=== PATIENT | female | born 1950 | race Two or more races ===

== ENCOUNTER 2017-11-17 18:03 | Inpatient (IN) | payer BC, OTHER ==
[2017-11-17 18:49] VITALS: BMI 29.6
--- NOTE | 2017-11-17 18:57 | PDOC ---
History of Present Illness - General Chief Complaint: Chest Pain Stated Complaint: Chest Pain Time Seen by Provider: 11/17/17 18:37 History Source: Patient Exam Limitations: No Limitations - History of Present Illness Initial Comments: This is a 67 YOF with h/o HTN (takes amlodipine and lisinopril), GERD (takes pantoprazole consistently), obesity, sleeve gastrectomy 2 years ago, and C- section x2 who p/w non-radiating 5/10 midsternal pressure fluctuating since this morning and associated with lightheadedness, pre-syncope at 1:30 pm, and tingling in her left arm and both feet, all of which she has never experienced before. She denies any f/c/n/v/d/c, black/bloody stool, burning on urination, bloody urine, vaginal bleeding or discharge, headache, vision changes, numbness , focal weakness, or other symptoms. She states that her chest pressure persists now at 5/10 and she additionally still feels lightheaded. She believes she has been eating and drinking well lately. She always has a baseline high stress level but believes she deals with it well and has no change in this baseline level lately. Her brother accompanies her here in the ED and she notes he has h/o CAD but no other family members do. She denies recent hemoptysis, OCP use, estrogen use, SOB, family h/o blood clot, prolonged immobilization or surgery, palpitations, etc. Past History - Past Medical History Allergies/Adverse Reactions: Allergies Allergy/AdvReac Type Severity Reaction Status Date / Time Penicillins Allergy Intermediate Verified 11/17/17 18:15 amoxicillin [Amoxicillin] Allergy Mild Verified 11/17/17 18:15 Home Medications: Ambulatory Orders Amlodipine Besylate [Norvasc -] 5 mg PO DAILY 11/17/17 Lisinopril/Hydrochlorothiazide [Lisinopril-Hctz 10-12.5 mg Tab] 1 each PO DAILY 11/17/17 Metoprolol Succinate [Toprol Xl] 100 mg PO DAILY 11/17/17 Pantoprazole Sodium [Protonix -] 40 mg PO DAILY 11/17/17 Cardiac Disorders: Yes (HTN) COPD: No Hypercholesterolemia: Yes - Suicide/Smoking/Psychosocial Hx Smoking Status: No Smoking History: Never smoked Have you smoked in the past 12 months: No Number of Cigarettes Smoked Daily: 0 Information on smoking cessation initiated: No Hx Alcohol Use: No Drug/Substance Use Hx: No Substance Use Type: None Hx Substance Use Treatment: No Review of Systems - Review of Systems Able to Perform ROS?: Yes Constitutional: No: Chills, Diaphoresis, Fever, Unexplained wgt Loss HEENTM: No: Nose Congestion, Throat Pain Respiratory: No: Cough, Shortness of Breath Cardiac (ROS): Yes: Chest Pain, Lightheadedness. No: Edema, Palpitations ABD/GI: No: Constipated, Diarrhea, Nausea, Vomiting : No: Burning, Dysuria Musculoskeletal: No: Back Pain, Neck Pain Integumentary: No: Bruising, Rash Neurological: Yes: Tingling (left arm, bilateral feet). No: Headache, Numbness , Weakness, Dizziness Endocrine: No: Unexplained Weight Gain, Unexplained Weight Loss *Physical Exam - Vital Signs Last Vital Signs Temp Pulse Resp BP Pulse Ox 98.0 F 56 L 18 151/84 100 11/18/17 22:00 11/18/17 22:38 11/18/17 22:00 11/18/17 22:00 11/18/17 22:00 - Physical Exam General Appearance: Yes: Nourished, Appropriately Dressed, Obese, Other (awake, alert, well appearing, answering appropriately, accompanied by brother at bedside). No: Apparent Distress HEENT: positive: EOMI, GLENNA, Normal Voice, Hearing Grossly Normal. negative: Scleral Icterus (R), Scleral Icterus (L), Nasal Congestion Neck: positive: Trachea midline, Supple. negative: Tender, Rigid Respiratory/Chest: positive: Lungs Clear, Normal Breath Sounds. negative: Respiratory Distress, Crackles, Rhonchi, Stridor, Wheezing Cardiovascular: positive: Regular Rhythm, S1, S2, Bradycardia (mild). negative : Edema, JVD, Murmur Comments:: radial pulses intact, equal, 2+ bilaterally Gastrointestinal/Abdominal: positive: Normal Bowel Sounds, Flat, Soft. negative : Tender, Organomegaly, Pulsatile Mass, Guarding Musculoskeletal: positive: Normal Inspection. negative: Decreased Range of Motion, Vertebral Tenderness Extremity: positive: Normal Capillary Refill, Normal Inspection, Normal Range of Motion. negative: Tender, Cyanosis Integumentary: positive: Normal Color, Dry, Warm. 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 negative: EOM Palsy, Facial Droop , Numbness, Sensory Deficit, Confused, Disoriented Heart Score/ECG Review - History History: Slightly suspicious - Electrocardiogram EKG: Normal - Age Age: >/= 65 - Risk Factors Risk Factors Heart Score: Yes Hx Hypertension, Yes Positive family hx of cardiac disease, Yes Hx Obesity Based on the list above the patient has:: >/=3 risk factors or Hx atherosclerotic disease - Troponin Troponin: </= normal limit - Score Heart Score - Total: 4 #1 Sinus marylou, rate 53, normal axis and intervals, TWI in I and aVL (these were present on EKG from 2012), no MAYO. ED Treatment Course - LABORATORY CBC & Chemistry Diagram: 11/17/17 19:01 11/17/17 21:30 - ADDITIONAL ORDERS Additional order review: 11/17/17 19:01 RBC 5.62 H MCV 78.8 L MCHC 32.6 RDW 15.2 MPV 11.1 Neutrophils % 56.7 Lymphocytes % 32.6 Monocytes % 7.0 Eosinophils % 2.9 Basophils % 0.8 - RADIOLOGY Radiology Studies Ordered: Category Date Time Status ABDOMEN CTA W/WO CONTRAST [CT] Stat CT Scan 11/17/17 20:00 Completed CHEST CTA [CT] Stat CT Scan 11/17/17 19:59 Completed CHEST PA & LAT [RAD] Stat Radiology 11/17/17 18:57 Completed - Medications Given in the ED: ED Medications Discontinued Medications Generic Name Dose Route Start Last Admin Trade Name Freq PRN Reason Stop Dose Admin Aspirin 325 mg 11/18/17 00:50 11/18/17 02:55 Asa - PO 11/18/17 00:51 325 mg ONCE ONE Administration Lisinopril 10 mg 11/18/17 01:12 11/18/17 02:55 Prinivil PO 11/18/17 01:13 10 mg ONCE ONE Administration Sodium Chloride 1,000 ml 11/17/17 18:59 11/17/17 19:22 Normal Saline - IV 11/17/17 19:00 1,000 ml ONCE ONE Administration Sodium Chloride 1,000 ml 11/17/17 22:20 11/17/17 22:30 Normal Saline - IV 11/17/17 22:21 1,000 ml ONCE ONE Administration Medical Decision Making - Medical Decision Making Adult Pt p/w chest pain. Initial Vital Signs Temp Pulse Resp BP Pulse Ox 99.1 F 62 18 189/94 100 11/17/17 18:17 11/17/17 18:17 11/17/17 18:17 11/17/17 18:17 11/17/17 18:17 Exam: As noted in Physical Exam section. DDX IBNLT: ACS, pericarditis, tamponade, aortic dissection, AAA, PTX, PE, esophageal tear, esophagitis (e.g. pill, infectious), esophageal stricture, esophageal FB, gastritis, PUD, pancreatitis, cholecystitis, cholangitis, colitis , bowel perforation, PNA/bronchitis, pleurisy, pleuritis, MVP, pulmonary HTN, musculoskeletal, panic/anxiety, etc. W/U ordered: CBCD CMP Mg Phos Lipase Troponin CK CKMB Coags T&S Blood gas UA UCx EKG CXR. TX ordered: monitor, ASA 324, NTG, O2 via NC if needed, statin, maybe metoprolol. Patient is 67 YOF and PERC criteria cannot be used to r/o PE. However without hypoxia, tachycardia, SOB, pleuritic nature, leg swelling/pain, or other sxs/risk factors PE is lower on differential. Per Weber Syncope Rule patient is low risk. EKG: Reviewed; results as noted in ECG Review section. 11/17/17 19:46 Chemistries, T&S, and Coags tubes hemolyzed and reordered. 11/17/17 20:04 Ordered is CTA C/A/P r/o dissection (low suspicion but patient cannot be ruled out for this without imaging). CXR: Nothing acute Laboratory Tests 11/17/17 11/17/17 11/17/17 19:01 19: 19:01 WBC 8.3 RBC 5.62 H Hgb 14.4 Hct 44.2 MCV 78.8 L MCH 25.6 L MCHC 32.6 RDW 15.2 Plt Count 161 MPV 11.1 Absolute Neuts (auto) 4.7 Neutrophils % 56.7 Lymphocytes % 32.6 Monocytes % 7.0 Eosinophils % 2.9 Basophils % 0.8 Nucleated RBC % 0 Platelet Estimate Adequate Platelet Comment PT with INR Cancelled INR Cancelled PTT (Actin FS) Sodium Cancelled Potassium Cancelled Chloride Cancelled Carbon Dioxide Cancelled Anion Gap Cancelled BUN Cancelled Creatinine Cancelled Creat Clearance w eGFR Cancelled Random Glucose Cancelled Lactic Acid Calcium Cancelled Phosphorus Magnesium Cancelled Total Bilirubin Cancelled AST Cancelled ALT Cancelled Alkaline Phosphatase Cancelled Creatine Kinase Cancelled Troponin I Cancelled Total Protein Cancelled Albumin Cancelled Lipase Urine Color Urine Appearance Urine pH Ur Specific [place] Urine Protein Urine Glucose (UA) Urine Ketones Urine Blood Urine Nitrite Urine Bilirubin Urine Urobilinogen Ur Leukocyte Esterase Anti-A Titer Blood Type Antibody Screen 11/17/17 11/17/17 11/17/17 19:01 19:01 19:01 WBC RBC Hgb Hct MCV MCH MCHC RDW Plt Count MPV Absolute Neuts (auto) Neutrophils % Lymphocytes % Monocytes % Eosinophils % Basophils % Nucleated RBC % Platelet Estimate Platelet Comment PT with INR INR PTT (Actin FS) Cancelled Sodium Potassium Chloride Carbon Dioxide Anion Gap BUN Creatinine Creat Clearance w eGFR Random Glucose Lactic Acid Calcium Phosphorus Magnesium Total Bilirubin AST ALT Alkaline Phosphatase Creatine Kinase Troponin I Total Protein Albumin Lipase Cancelled Urine Color Ltyellow Urine Appearance Clear Urine pH 5.0 Ur Specific [place] 1.011 Urine Protein Negative Urine Glucose (UA) Negative Urine Ketones Negative Urine Blood Negative Urine Nitrite Negative Urine Bilirubin Negative Urine Urobilinogen Negative Ur Leukocyte Esterase Negative Anti-A Titer Blood Type Antibody Screen 11/17/17 11/17/17 11/17/17 19:01 19:02 21:30 WBC RBC Hgb Hct MCV MCH MCHC RDW Plt Count MPV Absolute Neuts (auto) Neutrophils % Lymphocytes % Monocytes % Eosinophils % Basophils % Nucleated RBC % Platelet Estimate Platelet Comment PT with INR 11.40 INR 1.01 PTT (Actin FS) Sodium Potassium Chloride Carbon Dioxide Anion Gap BUN Creatinine Creat Clearance w eGFR Random Glucose Lactic Acid 1.0 Calcium Phosphorus Magnesium Total Bilirubin AST ALT Alkaline Phosphatase Creatine Kinase Troponin I Total Protein Albumin Lipase Urine Color Urine Appearance Urine pH Ur Specific [place] Urine Protein Urine Glucose (UA) Urine Ketones Urine Blood Urine Nitrite Urine Bilirubin Urine Urobilinogen Ur Leukocyte Esterase Anti-A Titer Cancelled Blood Type Cancelled Antibody Screen Cancelled 11/17/17 11/17/17 21:30 21:30 WBC RBC Hgb Hct MCV MCH MCHC RDW Plt Count MPV Absolute Neuts (auto) Neutrophils % Lymphocytes % Monocytes % Eosinophils % Basophils % Nucleated RBC % Platelet Estimate Platelet Comment PT with INR INR PTT (Actin FS) Sodium 141 Potassium 4.6 Chloride 105 Carbon Dioxide 27 Anion Gap 9 BUN 27 H Creatinine 1.3 H Creat Clearance w eGFR 41.11 Random Glucose 109 H Lactic Acid Calcium 8.9 Phosphorus 3.0 Magnesium 2.0 Total Bilirubin 0.5 AST 14 L ALT 18 Alkaline Phosphatase 72 Creatine Kinase 68 Troponin I < 0.02 Total Protein 7.4 Albumin 3.5 Lipase 599 H Urine Color Urine Appearance Urine pH Ur Specific [place] Urine Protein Urine Glucose (UA) Urine Ketones Urine Blood Urine Nitrite Urine Bilirubin Urine Urobilinogen Ur Leukocyte Esterase Anti-A Titer Blood Type Antibody Screen 11/17/17 22:31 I spoke with the patient about getting CTA with contrast and about the results of her kidney function tests. She is aware that contrast administration has the potential to worsen renal function and hers is borderline. She elects to proceed with the study and we will have [address] consent form. Notably, the patient had not received any IVF prior to Cr being drawn. She is getting bolus now. Reassessment: Patient states still lightheaded, mild chest/upper abdominal pain. Vital Signs Temperature 98.5 F 11/18/17 00:45 Pulse Rate 55 L 11/18/17 00:45 Respiratory Rate 18 11/18/17 00:45 Blood Pressure 184/92 11/18/17 00:45 O2 Sat by Pulse Oximetry (%) 100 11/18/17 00:45 11/18/17 00:51 CTA C/A/P completed and shows no e/o dissection; shows gallstones, thyroid enlargement vs. mass. ASA 324 is given as there is no e/o dissection. Repeat cardiac enzymes ordered. The Pt is unsafe for discharge at this time. They require further hospital observation, workup, and treatment. Patient's PCP is Blanca Potter; admits to Dr. Simon. Call has been placed to Dr. Simon by the ED quality engineer medical device Matthew. Nevaeh Decision to Admit order has been placed. 11/18/17 01:12 Decision to Admit order corrected adding Dr. Simon's name. Per Dr. Simon's request a consult order is placed to Dr. Green.Ordered is lisinopril 10 mg and HCTZ 12.5 per patient's normal daily dose that she missed today. Also ordered is head CT per Dr. Simon's request. Also ordered is US gallbladder to further characterize, given gallstones and elevated lipase. Patient has gotten 2 liters IVF. *DC/Admit/Observation/Transfer Diagnosis at time of Disposition: Gallstones, Elevated lipase, Dehydration, Pre-syncope, Thyroid mass Chest pain Qualifiers: Chest pain type: unspecified Qualified Code(s): R07.9 - Chest pain, unspecified - Discharge Dispostion Condition at time of disposition: Guarded Decision to Admit order: Yes - Referrals - Patient Instructions - Post Discharge Activity
[2017-11-17] MEDS ORDERED: SODIUM CHLORIDE 0.9% 500 ML INFUS.BAG IV ONE ×2 (18:59→22:20)
[2017-11-17 19:25] LABS: URINE APPEARANCE CLEAR; URINE BILIRUBIN NEGATIVE (<2.0 mg/dL); URINE COLOR LTYELLOW; URINE GLUCOSE (UA) NEGATIVE (NEGATIVE); URINE KETONE NEGATIVE (NEGATIVE); URINE LEUK ESTERASE NEGATIVE (NEGATIVE); URINE NITRITE NEGATIVE (NEGATIVE); URINE PROTEIN NEGATIVE (NEGATIVE); URINE UROBILINOGEN NEGATIVE mg/dL (0.2-1.0)
[2017-11-17 19:27] LABS: BASO % 0.8 % (0-2.0); EOS % 2.9 % (0-4.5); HEMATOCRIT 44.2 % (32.4-45.2); HEMOGLOBIN 14.4 GM/dL (10.7-15.3); LYMPH % 32.6 % (8-40); MCH 25.6 pg (25.7-33.7); MCHC 32.6 g/dl (32.0-36.0); MEAN CELL VOLUME 78.8 fl (80-96); NEUT % 56.7 % (42.8-82.8); RBC 5.62 M/mm3 (3.60-5.2); RDW 15.2 % (11.6-15.6); WHITE BLOOD COUNT 8.3 K/mm3 (4.0-10.0)
[2017-11-17 20:36] LABS: MEAN PLT VOLUME 11.1 fl (7.5-11.1); PLATELET COUNT 161 K/MM3 (134-434); PLATELET ESTIMATE ADEQUATE
[2017-11-17 21:48] LABS: INR 1.01 (0.83-1.09); PROTHROMBIN TIME (PATIENT) 11.4 SEC (9.7-13.0)
[2017-11-17 22:05] LABS: ALBUMIN 3.5 g/dl (3.4-5.0); ANION GAP 9 MMOL/L (8-16); BLOOD UREA NITROGEN 27 mg/dL (7-18); CALCIUM 8.9 mg/dL (8.5-10.1); CHLORIDE 105 mmol/L (98-107); CO2 27 mmol/L (21-32); CREATININE 1.3 mg/dL (0.55-1.02); GLUCOSE,RANDOM 109 mg/dL (74-106); POTASSIUM 4.6 mmol/L (3.5-5.1); SGOT/AST 14 U/L (15-37); SGPT/ALT 18 U/L (12-78); SODIUM 141 mmol/L (136-145)
[2017-11-17 22:09] LABS: ALK PHOS 72 U/L (45-117); BILIRUBIN,TOTAL 0.5 mg/dL (0.2-1.0); TOT PROT 7.4 g/dl (6.4-8.2)
[2017-11-18] MEDS ORDERED: ASPIRIN 325 MG TABLET PO ONE (00:50)
[2017-11-18] MEDS ORDERED: LISINOPRIL 10 MG TABLET (FP) PO ONE (01:12)
[2017-11-18] MEDS ORDERED: ASPIRIN 325 MG TABLET ONE (02:18)
[2017-11-18] MEDS ORDERED: LISINOPRIL 5 MG TABLET (FP) ONE (02:19)
--- NOTE | 2017-11-18 08:31 | HP ---
Admitting History and Physical - Primary Care Physician PCP: Radha Simon S - Admission Chief Complaint: chest pressure, LUE pain and feet tingling History of Present Illness: This is a 67 YOF with h/o HTN (takes amlodipine and lisinopril), GERD (takes pantoprazole consistently), obesity, sleeve gastrectomy 2 years ago, and C- section x2 who p/w non-radiating 5/10 midsternal chest pressure associated with lightheadedness, pre-syncope at 1:30 pm, and tingling in her left arm and both feet, all of which she has never experienced before. She denies any f/c/n/v/d/c , black/bloody stool, burning on urination, bloody urine, vaginal bleeding or discharge, headache, vision changes, numbness, focal weakness, or other symptoms. She states that her chest pressure persists now at 5/10 and she additionally still feels lightheaded. She believes she has been eating and drinking well lately. She always has a baseline high stress level but believes she deals with it well and has no change in this baseline level lately. Her brother accompanies her here in the ED and she notes he has h/o CAD but no other family members do. She denies recent hemoptysis, OCP use, estrogen use, SOB, family h/o blood clot, prolonged immobilization or surgery, palpitations, etc. pt seen in ER;pt's PCP dr Pantera Martinez;d/w pt and PCP History Source: Patient Limitations to Obtaining History: No Limitations - Past Medical History Cardiovascular: Yes: HTN - Smoking History Smoking history: Never smoked Have you smoked in the past 12 months: No Aproximately how many cigarettes per day: 0 - Alcohol/Substance Use Hx Alcohol Use: No History of Substance Use: reports: None - Social History Usual Living Arrangement: Yes: Alone ADL: Independent History of Recent Travel: No Home Medications - Allergies Allergies/Adverse Reactions: Allergies Allergy/AdvReac Type Severity Reaction Status Date / Time Penicillins Allergy Intermediate Verified 11/17/17 18:15 amoxicillin [Amoxicillin] Allergy Mild Verified 11/17/17 18:15 - Home Medications Home Medications: Ambulatory Orders Lisinopril/Hydrochlorothiazide [Lisinopril-Hctz 10-12.5 mg Tab] 1 each PO DAILY 11/17/17 Metoprolol Succinate [Toprol Xl] 100 mg PO DAILY 11/17/17 Pantoprazole Sodium [Protonix -] 40 mg PO DAILY 11/17/17 Amlodipine Besylate [Norvasc -] 10 mg PO DAILY #30 tablet 11/20/17 Family Disease History - Family Disease History Family History: Unremarkable Review of Systems - Review of Systems Constitutional: denies: Chills, Fever, Lethargy Eyes: denies: Blind Spots, Double Vision HENT: denies: Difficult Swallowing, Ear Pain, Epistaxis Cardiovascular: reports: Chest Pain. denies: Palpitations, Shortness of Breath Respiratory: denies: Cough, SOB Gastrointestinal: denies: Abdominal Pain, Constipation, Diarrhea, Vomiting Genitourinary: denies: Dysuria, Flank Pain Musculoskeletal: denies: Back Pain, Muscle Pain Integumentary: denies: Bruising, Rash, Wound Neurological: reports: Dizziness, Parasthesia, Weakness (general). denies: Change in LOC, Change in Speech, Confusion Hematology/Lymphatic: denies: Easily Bruised, Excessive Bleeding Psychiatric: denies: Anxiety, Depression Physical Examination Vital Signs: Vital Signs Temperature 98.2 F 11/18/17 06:51 Pulse Rate 53 L 11/18/17 06:51 Respiratory Rate 18 11/18/17 06:51 Blood Pressure 165/92 11/18/17 06:51 O2 Sat by Pulse Oximetry (%) 100 11/18/17 06:51 Constitutional: Yes: No Distress, Calm Eyes: Yes: Conjunctiva Clear HENT: Yes: Atraumatic Neck: Yes: Supple Cardiovascular: Yes: Regular Rate and Rhythm Respiratory: Yes: CTA Bilaterally Gastrointestinal: Yes: Soft. No: Distention Renal/: No: CVA Tenderness - Left, CVA Tenderness - Right Musculoskeletal: No: Joint Stiffness, Joint Swelling Extremities: No: Cold, Cool, Cyanosis Edema: No Integumentary: No: Rash, Venous Stasis Changes Neurological: Yes: WNL, Alert, Oriented ...Motor Strength: WNL Psychiatric: Yes: WNL, Alert, Oriented. No: Agitated, Suicidal Ideation Labs: CBC, BMP 11/17/17 19:01 11/17/17 21:30 Imaging - Results Chest X-ray: Report Reviewed Other: Report Reviewed Assessment/Plan This is a 67 YOF with h/o HTN (takes amlodipine and lisinopril), GERD (takes pantoprazole consistently), obesity, sleeve gastrectomy 2 years ago, and C- section x2 who p/w non-radiating 5/10 midsternal chest pressure f and associated with lightheadedness, pre-syncope at 1:30 pm, and tingling in her left arm and both feet, all of which she has never experienced before. . admit to telemetry cardiology and neurology eval CE x3;echo brain MRI; carotid US had CAP CT with IVC in ER r/o dissection, no dissection, will check official report d/w pt and staff dw pt's PCP dr Pantera Lucas
[2017-11-18] MEDS ORDERED: LISINOPRIL 5 MG TABLET (FP) PO SCH (10:00)
[2017-11-18] MEDS ORDERED: LISINOPRIL 10 MG TABLET (FP) PO SCH (10:00)
[2017-11-18] MEDS ORDERED: PATIENT'S OWN MEDICATION (NON-FORMULARY) (Lisinopril/Hydrochlorothiazide [Lisinopril-Hctz PO SCH (10:00)
[2017-11-18] MEDS ORDERED: amLODIPine BESYLATE 5 MG TABLET (FP) PO SCH (10:00)
[2017-11-18] MEDS ORDERED: HYDROCHLOROTHIAZIDE 25 MG TABLET (FP) ONE (10:14)
[2017-11-18] MEDS: HEPARIN NA (PORCINE) 5,000 UNITS/ML 1ML VIAL SQ SCH ×2 (10:20→21:10)
[2017-11-18] MEDS: LISINOPRIL 10 MG TABLET (FP) PO SCH (10:20)
[2017-11-18] MEDS: HYDROCHLOROTHIAZIDE 12.5 MG CAPSULE (FP) PO SCH (10:20)
[2017-11-18] MEDS: PANTOPRAZOLE 40 MG TABLET (FP) PO SCH (10:21)
--- NOTE | 2017-11-18 12:08 | CON.CARD ---
Cardiology Consult (text) - Consultation Consultation Note: cc: cp, lightheaded hpi: 67 f hx htn, hld, gerd here with cp lightheaded. [place] fine up until yesterday when she noticed in AM central cp. [place], mild, resolved in few minutes. Then later in day noticed lightheadedness while walking. Laid down and sxs persisted. Eventually came to ER and sxs resolved. No sob, palps loc pnd orthopnea le edema. pmh: per hpi psh: , gastric sleeve social: no tob fam: no premature cad, scd ros: per hpi; no nvd, fever cough gib hematuira dysuria wt loss dec appetite meds: Home Medications Medication Instructions Recorded Amlodipine Besylate [Norvasc -] 5 mg PO DAILY 11/17/17 Lisinopril/Hydrochlorothiazide 1 each PO DAILY 11/17/17 [Lisinopril-Hctz 10-12.5 mg Tab] Metoprolol Succinate [Toprol Xl] 100 mg PO DAILY 11/17/17 Pantoprazole Sodium [Protonix -] 40 mg PO DAILY 11/17/17 pe: Vital Signs Period Temp Pulse Resp BP Sys/Bruno Pulse Ox Last 24 Hr 98.2 F-99.1 F 50-62 18-18 157-189/87-94 100-100 nad no jvd rrr s1s2 no mrg cta bl nl eff aaox3 no le e/c/c abd nd nt pos bs no jaundice diaphroesis pos dp pt no carotid bruits Laboratory Last Values WBC 8.3 K/mm3 (4.0-10.0) 11/17/17 19: RBC 5.62 M/mm3 (3.60-5.2) H 11/17/17 19:01 Hgb 14.4 GM/dL (10.7-15.3) 11/17/17 19: Hct 44.2 % (32.4-45.2) 11/17/17 19: MCV 78.8 fl (80-96) L 11/17/17 19:01 MCH 25.6 pg (25.7-33.7) L 11/17/17 19: MCHC 32.6 g/dl (32.0-36.0) 11/17/17 19: RDW 15.2 % (11.6-15.6) 11/17/17 19:01 Plt Count 161 K/MM3 (134-434) 11/17/17 19: MPV 11.1 fl (7.5-11.1) 11/17/17 19: Absolute Neuts (auto) 4.7 K/mm3 (1.5-8.0) 11/17/17 19: Neutrophils % 56.7 % (42.8-82.8) 11/17/17 19: Lymphocytes % 32.6 % (8-40) 11/17/17 19: Monocytes % 7.0 % (3.8-10.2) 11/17/17 19: Eosinophils % 2.9 % (0-4.5) 11/17/17 19: Basophils % 0.8 % (0-2.0) 11/17/17 19: Nucleated RBC % 0 % (0-0) 11/17/17 19: Platelet Estimate Adequate 11/17/17 19: Platelet Comment 11/17/17 19: PT with INR 11.40 SEC (9.7-13.0) 11/17/17 21:30 INR 1.01 (0.83-1.09) 11/17/17 21:30 PTT (Actin FS) Cancelled 11/17/17 19:01 Sodium 141 mmol/L (136-145) 11/17/17 21:30 Potassium 4.6 mmol/L (3.5-5.1) 11/17/17 21:30 Chloride 105 mmol/L (98-107) 11/17/17 21:30 Carbon Dioxide 27 mmol/L (21-32) 11/17/17 21:30 Anion Gap 9 MMOL/L (8-16) 11/17/17 21:30 BUN 27 mg/dL (7-18) H 11/17/17 21:30 Creatinine 1.3 mg/dL (0.55-1.02) H 11/17/17 21:30 Creat Clearance w eGFR 41.11 (>60) 11/17/17 21:30 Random Glucose 109 mg/dL (74-106) H 11/17/17 21:30 Lactic Acid 1.0 mmol/L (0.0-2.0) 11/17/17 19:01 Calcium 8.9 mg/dL (8.5-10.1) 11/17/17 21:30 Phosphorus 3.0 mg/dL (2.5-4.9) 11/17/17 21:30 Magnesium 2.0 mg/dL (1.8-2.4) 11/17/17 21:30 Total Bilirubin 0.5 mg/dL (0.2-1.0) 11/17/17 21:30 AST 14 U/L (15-37) L 11/17/17 21:30 ALT 18 U/L (12-78) 11/17/17 21:30 Alkaline Phosphatase 72 U/L (45-117) 11/17/17 21:30 Creatine Kinase 68 IU/L (26-192) 11/17/17 21:30 Troponin I < 0.02 ng/ml (0.00-0.05) 11/18/17 06:45 Total Protein 7.4 g/dl (6.4-8.2) 11/17/17 21:30 Albumin 3.5 g/dl (3.4-5.0) 11/17/17 21:30 Lipase 599 U/L (73-393) H 11/17/17 21:30 Urine Color Ltyellow 11/17/17 19:01 Urine Appearance Clear 11/17/17 19:01 Urine pH 5.0 (5.0-8.0) 11/17/17 19:01 Ur Specific [place] 1.011 (1.001-1.035) 11/17/17 19:01 Urine Protein Negative (NEGATIVE) 11/17/17 19:01 Urine Glucose (UA) Negative (NEGATIVE) 11/17/17 19:01 Urine Ketones Negative (NEGATIVE) 11/17/17 19:01 Urine Blood Negative (NEGATIVE) 11/17/17 19:01 Urine Nitrite Negative (NEGATIVE) 11/17/17 19:01 Urine Bilirubin Negative (<2.0 mg/dL) 11/17/17 19:01 Urine Urobilinogen Negative mg/dL (0.2-1.0) 11/17/17 19:01 Ur Leukocyte Esterase Negative (NEGATIVE) 11/17/17 19:01 Anti-A Titer Cancelled 11/17/17 19:02 Blood Type O POSITIVE 11/18/17 08:10 Antibody Screen Negative 11/17/17 21:30 mibi 10/2012: ant defect most likely attenuation artifact, cannot rule out small ischemia, nl lvef echo 10/2012: nl lv/rv, no sig valve path cxr: clear lungs ecg: sb 53, nl intervals, no ischemic changes a/p: 67 f hx htn, hld, gerd here with cp lightheaded. presyncope: -symptoms resolved -no cardiac etiology apparent -no signs acs, chf, arrhythmia -check echo -monitor tele -check ortho vs cp: -atypical isolated episode, resolved -no signs acs -check echo -monitor for recurrence htn: -cont current meds -if needed can increase norvasc to 10
--- NOTE | 2017-11-18 12:45 | CON.NEURO ---
Consult Consult Specialty:: NEUROLOGY-NOAH LEON - History of Present Illness History of Present Illness: This is a 67 YOF with h/o HTN (takes amlodipine and lisinopril), GERD (takes pantoprazole consistently), obesity, sleeve gastrectomy 2 years ago, and C- section x2 who p/w non-radiating 5/10 midsternal pressure fluctuating since this morning and associated with lightheadedness, pre-syncope at 1:30 pm, and tingling in her left arm and both feet, all of which she has never experienced before. She denies any f/c/n/v/d/c, black/bloody stool, burning on urination, bloody urine, vaginal bleeding or discharge, headache, vision changes, numbness , focal weakness, or other symptoms. She states that her chest pressure persists now at 5/10 and she additionally still feels lightheaded. She believes she has been eating and drinking well lately. She always has a baseline high stress level but believes she deals with it well and has no change in this baseline level lately. Her brother accompanies her here in the ED and she notes he has h/o CAD but no other family members do. She denies recent hemoptysis, OCP use, estrogen use, SOB, family h/o blood clot, prolonged immobilization or surgery, palpitations, etc. Today reports yesterday she had 3 episodes lasting 5-7mns each of dizziness with a sensation of chest pressure and one with tingling in bilateral feet. She noted her BP to be lower than her baseline yesterday. Denies all symptoms today , feels well. CT head without acute abn to my review, reportP - Alcohol/Substance Use Hx Alcohol Use: No - Smoking History Smoking history: Never smoked Have you smoked in the past 12 months: No Aproximately how many cigarettes per day: 0 Home Medications - Allergies Allergies/Adverse Reactions: Allergies Allergy/AdvReac Type Severity Reaction Status Date / Time Penicillins Allergy Intermediate Verified 11/17/17 18:15 amoxicillin [Amoxicillin] Allergy Mild Verified 11/17/17 18:15 - Home Medications Home Medications: Ambulatory Orders Amlodipine Besylate [Norvasc -] 5 mg PO DAILY 11/17/17 Lisinopril/Hydrochlorothiazide [Lisinopril-Hctz 10-12.5 mg Tab] 1 each PO DAILY 11/17/17 Metoprolol Succinate [Toprol Xl] 100 mg PO DAILY 11/17/17 Pantoprazole Sodium [Protonix -] 40 mg PO DAILY 11/17/17 Physical Exam-Neuro Vital Signs: Vital Signs Temperature 98.3 F 11/18/17 10:09 Pulse Rate 50 L 11/18/17 10:09 Respiratory Rate 18 11/18/17 10:32 Blood Pressure 157/87 11/18/17 10:09 O2 Sat by Pulse Oximetry (%) 100 11/18/17 10:32 Labs: CBC, BMP 11/17/17 19:01 11/17/17 21:30 INR, PTT INR 1.01 (0.83-1.09) 11/17/17 21:30 - Neuro Exam Motor Strength: 5/5: Left Arm, Right Arm, Left Leg, Right Leg Gait: Normal Assessment/Plan Pt. with episodes of dizziness/presyncope?? due to transient hypotension. Of concern is bilat. paresthesias in both feet raising possibility of vertebrobasilar system fall in perfusion pressure transiently. Suggest: MRI/MRA brain, would place on Palvix 75mg daily if no contraindications. Cardiac w/u as planned. Thank you, Tye Rowley MD
--- NOTE | 2017-11-18 17:18 | PDOC ---
*Physical Exam - Vital Signs Last Vital Signs Temp Pulse Resp BP Pulse Ox 98.0 F 61 18 163/94 100 11/18/17 15:55 11/18/17 15:55 11/18/17 15:55 11/18/17 15:55 11/18/17 15:55 ED Treatment Course - LABORATORY CBC & Chemistry Diagram: 11/17/17 19:01 11/17/17 21:30 - ADDITIONAL ORDERS Additional order review: 11/17/17 19:01 RBC 5.62 H MCV 78.8 L MCHC 32.6 RDW 15.2 MPV 11.1 Neutrophils % 56.7 Lymphocytes % 32.6 Monocytes % 7.0 Eosinophils % 2.9 Basophils % 0.8 - Medications Given in the ED: ED Medications Discontinued Medications Generic Name Dose Route Start Last Admin Trade Name Freq PRN Reason Stop Dose Admin Aspirin 325 mg 11/18/17 00:50 11/18/17 02:55 Asa - PO 11/18/17 00:51 325 mg ONCE ONE Administration Lisinopril 10 mg 11/18/17 01:12 11/18/17 02:55 Prinivil PO 11/18/17 01:13 10 mg ONCE ONE Administration Sodium Chloride 1,000 ml 11/17/17 18:59 11/17/17 19:22 Normal Saline - IV 11/17/17 19:00 1,000 ml ONCE ONE Administration Sodium Chloride 1,000 ml 11/17/17 22:20 11/17/17 22:30 Normal Saline - IV 11/17/17 22:21 1,000 ml ONCE ONE Administration Medical Decision Making - Medical Decision Making 11/18/17 17:17 Received call from Radiology. Patient had MRI ordered overnight by admitting team. Patient has a mass in the right orbit which will require a dedicated MRI with contrast. Dr Aurora saeed. 11/18/17 17:32 D/w Dr Simon. *DC/Admit/Observation/Transfer Diagnosis at time of Disposition: Gallstones, Elevated lipase, Dehydration, Pre-syncope, Thyroid mass Chest pain Qualifiers: Chest pain type: unspecified Qualified Code(s): R07.9 - Chest pain, unspecified - Discharge Dispostion Condition at time of disposition: Guarded - Referrals - Patient Instructions - Post Discharge Activity
[2017-11-19 07:13] LABS: BASO % 0.8 % (0-2.0); HEMATOCRIT 40.7 % (32.4-45.2); HEMOGLOBIN 13.1 GM/dL (10.7-15.3); LYMPH % 46.9 % (8-40); MCH 25.2 pg (25.7-33.7); MCHC 32.3 g/dl (32.0-36.0); MEAN CELL VOLUME 77.8 fl (80-96); MEAN PLT VOLUME 11.1 fl (7.5-11.1); MONO % 6.2 % (3.8-10.2); NEUT % 42.1 % (42.8-82.8); PLATELET COUNT 112 K/MM3 (134-434); RBC 5.22 M/mm3 (3.60-5.2); RDW 14.8 % (11.6-15.6); WHITE BLOOD COUNT 7.2 K/mm3 (4.0-10.0)
[2017-11-19 08:02] LABS: CHLORIDE 106 mmol/L (98-107); POTASSIUM 4.3 mmol/L (3.5-5.1); SODIUM 143 mmol/L (136-145)
[2017-11-19 08:22] LABS: ALBUMIN 3.2 g/dl (3.4-5.0); ALK PHOS 59 U/L (45-117); AMYLASE 114 U/L (25-115); ANION GAP 11 MMOL/L (8-16); BILIRUBIN,TOTAL 0.8 mg/dL (0.2-1.0); BLOOD UREA NITROGEN 21 mg/dL (7-18); CALCIUM 8.9 mg/dL (8.5-10.1); CO2 26 mmol/L (21-32); GLUCOSE,RANDOM 100 mg/dL (74-106); SGOT/AST 14 U/L (15-37); SGPT/ALT 16 U/L (12-78); TOT PROT 6.8 g/dl (6.4-8.2)
[2017-11-19 08:31] LABS: LIPASE 433 U/L (73-393)
[2017-11-19] MEDS: HYDROCHLOROTHIAZIDE 12.5 MG CAPSULE (FP) PO SCH (09:23)
[2017-11-19] MEDS: HEPARIN NA (PORCINE) 5,000 UNITS/ML 1ML VIAL SQ SCH (09:23)
[2017-11-19] MEDS: PANTOPRAZOLE 40 MG TABLET (FP) PO SCH (09:24)
[2017-11-19] MEDS: LISINOPRIL 10 MG TABLET (FP) PO SCH (09:24)
[2017-11-19] MEDS: amLODIPine BESYLATE 10 MG TABLET (FP) PO SCH (10:49)
--- NOTE | 2017-11-19 11:17 | PN ---
Progress Note (short form) - Note Progress Note: s: no cp sob palps dizzy o: Vital Signs Period Temp Pulse Resp BP Sys/Bruno Pulse Ox Last 24 Hr 98 F-98.3 F 56-71 18-18 116-164/70-94 100-100 nad no jvd rrr s1s2 no mrg cta bl nl eff aaox3 no le e/c/c abd nd nt pos bs no jaundice diaphroesis Current Medications Generic Name Dose Route Start Last Admin Trade Name Kailey PRN Reason Stop Dose Admin Amlodipine Besylate 10 mg 11/19/17 09:18 11/19/17 10:49 Norvasc - PO 10 mg DAILY DEB Administration Heparin Sodium (Porcine) 5,000 unit 11/18/17 10:00 11/19/17 09:23 Heparin - SQ 5,000 unit BID DEB Administration Hydrochlorothiazide 12.5 mg 11/18/17 10:00 11/19/17 09:23 Hctz - PO 12.5 mg DAILY DEB Administration Lisinopril 10 mg 11/18/17 10:00 11/19/17 09:24 Prinivil PO 10 mg DAILY DEB Administration Metoprolol Succinate 100 mg 11/18/17 10:00 11/19/17 09:24 Toprol Xl - PO 100 mg DAILY DEB Administration Pantoprazole Sodium 40 mg 11/18/17 10:00 11/19/17 09:24 Protonix - PO 40 mg DAILY DEB Administration CBC, BMP 11/19/17 05:30 11/19/17 05:30 mibi 10/2012: ant defect most likely attenuation artifact, cannot rule out small ischemia, nl lvef echo 10/2012: nl lv/rv, no sig valve path cxr: clear lungs ecg: sb 53, nl intervals, no ischemic changes tele: sr a/p: 67 f hx htn, hld, gerd here with cp lightheaded. presyncope: -symptoms resolved -no cardiac etiology apparent -no signs acs, chf, arrhythmia -check echo -tele benign -neuro eval in progress cp: -atypical isolated episode, resolved -no signs acs -check echo -monitor for recurrence htn: -will increase norvasc to 10 for better control
--- NOTE | 2017-11-19 12:51 | PN ---
Progress Note, Physician Chief Complaint: in nbed feels better after adjusting BP meds no CP no dizziness CTA and MRI reports d/w pt many incidental findings: possible R obital mass - check orbital MRI report will need eye dr f/u outpt within 1 week; no current visual changes chest CT f/u in 3 months for small L lung nodule; thyroid US as outpt r/o mass/ goiter; will need outpt [employer] f/u for ovarian cyst L side; will need outpt eval for renal cysts; GI f/u outpt for gallstones and elevated lipase; hematology eval outpt for low PLT; d/w pt in detail,copies of reports given to pt d/w pt's PCP all the above t time 45 min - Current Medication List Current Medications: Active Medications Amlodipine Besylate (Norvasc -) 10 mg PO DAILY [facility] Last Admin: 11/19/17 10:49 Dose: 10 mg Hydrochlorothiazide (Hctz -) 12.5 mg PO DAILY [facility] Last Admin: 11/19/17 09:23 Dose: 12.5 mg Lisinopril (Prinivil) 10 mg PO DAILY [facility] Last Admin: 11/19/17 09:24 Dose: 10 mg Metoprolol Succinate (Toprol Xl -) 100 mg PO DAILY [facility] Last Admin: 11/19/17 09:24 Dose: 100 mg Pantoprazole Sodium (Protonix -) 40 mg PO DAILY [facility] Last Admin: 11/19/17 09:24 Dose: 40 mg - Objective Vital Signs: Vital Signs Temperature 98 F 11/19/17 05:39 Pulse Rate 59 L 11/19/17 06:51 Respiratory Rate 18 11/19/17 05:39 Blood Pressure 116/70 11/19/17 06:51 O2 Sat by Pulse Oximetry (%) 100 11/18/17 22:00 Constitutional: Yes: No Distress, Calm Eyes: Yes: Conjunctiva Clear HENT: Yes: Atraumatic Neck: Yes: Supple Cardiovascular: Yes: Regular Rate and Rhythm Respiratory: Yes: CTA Bilaterally Gastrointestinal: Yes: Soft. No: Vomiting Genitourinary: No: CVA Tenderness - Left, CVA Tenderness - Right Musculoskeletal: No: Joint Stiffness, Joint Swelling Extremities: No: Cold, Cool, Cyanosis Edema: No Integumentary: No: Rash, Venous Stasis Changes Neurological: Yes: WNL, Alert, Oriented ...Motor Strength: WNL Psychiatric: Yes: WNL, Alert, Oriented. No: Agitated, Suicidal Ideation Labs: CBC, BMP 11/19/17 05:30 11/19/17 05:30 INR, PTT INR 1.01 (0.83-1.09) 11/17/17 21:30 - ....Imaging Other: Report Reviewed Assessment/Plan This is a 67 YOF with h/o HTN (takes amlodipine and lisinopril), GERD (takes pantoprazole consistently), obesity, sleeve gastrectomy 2 years ago, and C- section x2 admitted to telemetry with CP presyncope r/Precious /TIA/ AOdissection cardiology and neurology f/u see above discussion and f/u advised d/w pt and staff dw pt's PCP dr Pantera Lucas
--- NOTE | 2017-11-19 13:43 | EKG ---
Test Reason : Blood Pressure : / mmHG Vent. Rate : 053 BPM Atrial Rate : 053 BPM P-R Int : 140 ms QRS Dur : 078 ms QT Int : 436 ms P-R-T Axes : 027 014 087 degrees QTc Int : 409 ms SINUS BRADYCARDIA POSSIBLE LEFT ATRIAL ENLARGEMENT BORDERLINE ECG WHEN COMPARED WITH ECG OF 11-NOV-2012 11:12, NO SIGNIFICANT CHANGE WAS FOUND Confirmed by ESTEBAN WILKINS MD ([id number]) on 11/19/2017 1:43:33 PM Referred By: Confirmed By:ESTEBAN WILKINS MD
--- NOTE | 2017-11-19 20:00 | PN ---
Progress Note (short form) - Note Progress Note: Pt. feels well, asymptomatic. CT/MRI with right apical orbibatl mass reviewed- ddx. includes meningioma/hemangioma. Await official report, would hold Plavix for now(was indicated for primary prevention anyway). I will review MRI with neuroradiology at [facility] too.Pt. reassured. Tye Rowley MD
[2017-11-20 06:49] LABS: HEMATOCRIT 41.9 % (32.4-45.2); HEMOGLOBIN 13.4 GM/dL (10.7-15.3); LYMPH % 46.8 % (8-40); MCH 25.3 pg (25.7-33.7); MEAN CELL VOLUME 79.1 fl (80-96); MEAN PLT VOLUME 10.9 fl (7.5-11.1); MONO % 7.3 % (3.8-10.2); NEUT % 41.9 % (42.8-82.8); PLATELET COUNT 116 K/MM3 (134-434); RDW 14.7 % (11.6-15.6); WHITE BLOOD COUNT 7.2 K/mm3 (4.0-10.0)
[2017-11-20 07:14] LABS: ANION GAP 12 MMOL/L (8-16); BLOOD UREA NITROGEN 22 mg/dL (7-18); CALCIUM 9.3 mg/dL (8.5-10.1); CHLORIDE 104 mmol/L (98-107); CO2 27 mmol/L (21-32); CREATININE 1.1 mg/dL (0.55-1.02); GLUCOSE,RANDOM 108 mg/dL (74-106); POTASSIUM 4.3 mmol/L (3.5-5.1); SODIUM 143 mmol/L (136-145)
--- NOTE | 2017-11-20 08:19 | DS ---
Physical Examination Vital Signs: Vital Signs Temperature 97.7 F 11/20/17 02:00 Pulse Rate 51 L 11/20/17 02:00 Respiratory Rate 18 11/20/17 02:00 Blood Pressure 144/67 11/20/17 02:00 O2 Sat by Pulse Oximetry (%) 98 11/19/17 20:06 Findings/Remarks: feels well no co will DC Home, echo no acute changes orbital MRI d/w pt report given to pt to see eye dr and PCP outpt f/u as advised Constitutional: Yes: No Distress, Calm Eyes: Yes: Conjunctiva Clear HENT: Yes: Atraumatic Neck: Yes: Supple Cardiovascular: Yes: Regular Rate and Rhythm Respiratory: Yes: CTA Bilaterally Gastrointestinal: Yes: Soft. No: Distention, Tenderness Renal/: No: CVA Tenderness - Left, CVA Tenderness - Right Extremities: No: Cold, Cool, Cyanosis Edema: No Integumentary: No: Rash, Venous Stasis Changes Neurological: Yes: WNL, Alert, Oriented ...Motor Strength: WNL Psychiatric: Yes: WNL, Alert, Oriented. No: Agitated, Suicidal Ideation Labs: CBC, BMP 11/20/17 05:30 11/20/17 05:30 Discharge Summary Reason For Visit: PRE-SYNCOPE,MUTIPLE GALLSTONES,INCREASED SERUM Current Active Problems Chest pain (Acute) Dehydration (Acute) Elevated lipase (Acute) Gallstones (Acute) Pre-syncope (Acute) Thyroid mass (Acute) Procedures: Principal: admitted with CPpresyncope - [place]; R/oTIA r/o AO dissection Other Procedures: admitted in telemetry; CE negative;. seen by cardiology and neurology;. HTN increased BP meds adjusted;. brain MRI, MRA, orbital MRI done ; CAP CTA results d/w pt f/u as advised Hospital Course: improved with above; DC home and f/u as advised Condition: Guarded - Instructions Diet, Activity, Other Instructions: f/u PCP in 1-2 weeks, check labs CBC CMP in 1-2 weeks; cardiology and neurology f/u in 1-2 weeks f/u orbital MRI report and eye dr f/u within 1 week; chest CT f/u in 3 months for small L lung nodule; thyroid US as outpt; [employer] f/u for ovarian cyst L side; eval for renal cysts; GI fu for gallstones and elevated lipase; hematology fu for low PLT; RTER if worse or recurrent. Referrals: Karlos Green MD [Staff Physician] - Karen Rowley MD [Staff Physician] - Blanca Potter MD [Primary Care Provider] - Disposition: HOME - Home Medications Comprehensive Discharge Medication List: Ambulatory Orders Amlodipine Besylate [Norvasc -] 5 mg PO DAILY 11/17/17 Lisinopril/Hydrochlorothiazide [Lisinopril-Hctz 10-12.5 mg Tab] 1 each PO DAILY 11/17/17 Metoprolol Succinate [Toprol Xl] 100 mg PO DAILY 11/17/17 Pantoprazole Sodium [Protonix -] 40 mg PO DAILY 11/17/17
--- NOTE | 2017-11-20 09:32 | PN ---
Progress Note (short form) - Note Progress Note: s: no cp sob palps dizzy o: Vital Signs Period Temp Pulse Resp BP Sys/Bruno Pulse Ox Last 24 Hr 97.7 F-98.3 F 51-59 18-20 137-164/67-88 98 nad no jvd rrr s1s2 no mrg cta bl nl eff aaox3 no le e/c/c abd nd nt pos bs no jaundice diaphroesis Current Medications Amlodipine Besylate (Norvasc -) 10 mg PO DAILY [facility] Last Admin: 11/19/17 10:49 Dose: 10 mg Hydrochlorothiazide (Hctz -) 12.5 mg PO DAILY [facility] Last Admin: 11/19/17 09:23 Dose: 12.5 mg Lisinopril (Prinivil) 10 mg PO DAILY [facility] Last Admin: 11/19/17 09:24 Dose: 10 mg Metoprolol Succinate (Toprol Xl -) 100 mg PO DAILY [facility] Last Admin: 11/19/17 09:24 Dose: 100 mg Pantoprazole Sodium (Protonix -) 40 mg PO DAILY [facility] Last Admin: 11/19/17 09:24 Dose: 40 mg mibi 10/2012: ant defect most likely attenuation artifact, cannot rule out small ischemia, nl lvef echo 10/2012: nl lv/rv, no sig valve path cxr: clear lungs ecg: sb 53, nl intervals, no ischemic changes tele: sr, sb a/p: 67 f hx htn, hld, gerd here with cp lightheaded. presyncope: -symptoms resolved -no cardiac etiology apparent -no signs acs, chf, arrhythmia - echo report pending, if benign no further work up from cardiac perspective -tele no events -neuro eval in progress cp: -atypical isolated episode, resolved -no signs acs -check echo -monitor for recurrence htn: -will increase norvasc to 10 for better control
[2017-11-20] MEDS: LISINOPRIL 10 MG TABLET (FP) PO SCH (09:48)
[2017-11-20] MEDS: PANTOPRAZOLE 40 MG TABLET (FP) PO SCH (09:48)
[2017-11-20] MEDS: amLODIPine BESYLATE 10 MG TABLET (FP) PO SCH (09:48)
[2017-11-20] MEDS: HYDROCHLOROTHIAZIDE 12.5 MG CAPSULE (FP) PO SCH (09:48)
--- NOTE | 2017-11-20 14:29 | ECHO ---
Name: CANAS, MABLE Exam:Adult Echocardiogram Study Date: 11/20/2017 08:07 AM Age: 67 yrs Reason For Study: Chest pain Height: 65 in Weight: 178 lb BSA: 1.9 m2 MMode/2D Measurements & Calculations IVSd: 1.1 cm Ao root diam: 3.0 cm LVIDd: 3.9 cm LA dimension: 3.6 cm LVIDs: 1.6 cm ACS: 1.5 cm LVPWd: 1.1 cm IVSs: 1.7 cm LVPWs: 1.3 cm EDV(Teich): 66.7 ml ESV(Teich): 7.2 ml LVOT diam: 2.0 cm Doppler Measurements & Calculations MV E max nba: 68.1 cm/sec Ao V2 max: 217.2 cm/sec MV A max nba: 109.1 cm/sec Ao max P.9 mmHg MV E/A: 0.62 Ao V2 mean: 145.1 cm/sec Ao mean P.7 mmHg Ao V2 VTI: 42.7 cm CLINTON(I,D): 2.2 cm2 CLINTON(V,D): 1.9 cm2 LV V1 max P.8 mmHg SV(LVOT): 94.5 ml LV V1 mean P.3 mmHg LV V1 max: 130.4 cm/sec LV V1 mean: 97.2 cm/sec LV V1 VTI: 30.3 cm TV V2 max: 106.6 cm/sec TR max nba: 220.7 cm/sec TV max P.5 mmHg TR max P.6 mmHg PI end-d nba: 76.0 cm/sec Med Peak E' Nba: 3.5 cm/sec Med E/e': 19.4 Lat Peak E' Nba: 6.6 cm/sec Lat E/e': 10.3 Procedure A complete two-dimensional transthoracic echocardiogram was performed (2D, M-mode, Doppler and color flow Doppler). The study was technically good with many images being of high quality. Left Ventricle The left ventricular size, thickness and function are normal. Ejection Fraction = 55%. The transmitra l spectral Doppler flow pattern is suggestive of impaired LV relaxation. Right Ventricle The right ventricle is normal in size and function. Atria Normal left and right atrial size and function. Mitral Valve There is mild mitral annular calcification. Tricuspid Valve The tricuspid valve is normal. Aortic Valve There is mild aortic sclerosis.;. Pulmonic Valve The pulmonic valve leaflets are thin and pliable; valve motion is normal. Trace pulmonic valvular regurgitation. Great Vessels The aortic root is not well visualized. Pericardium/Pleura There is no pericardial effusion. Interpretation Summary The left ventricular size, thickness and function are normal The transmitral spectral Doppler flow pattern is suggestive of impaired LV relaxation. The right ventricle is normal in size and function. There is mild aortic sclerosis.; Kojo Andersen 11/20/2017 01:55 PM
[2017-11-20 15:14] VITALS: BP 129/79; PULSE 57; TEMP 98.2
== END 2017-11-20 17:16 | disposition home or self-care (01) | DRG 312 ==
LOC: JER 18:03 → JERBED 11-18 00:54 → J4W 11-18 19:18
PROVIDERS: ADMIT Internal Medicine; ATTEND Internal Medicine
DX: R55 Syncope and collapse (principal); I95.9 Hypotension, unspecified; R07.89 Other chest pain; K21.9 Gastro-esophageal reflux disease without esophagitis; E66.9 Obesity, unspecified; Z88.0 Allergy status to penicillin; E86.0 Dehydration; E78.5 Hyperlipidemia, unspecified; R42 Dizziness and giddiness; E07.9 Disorder of thyroid, unspecified; Z68.29 Body mass index [BMI] 29.0-29.9, adult
CPT/HCPCS: 36415; 70450-TC; 70540; 70544-TC; 70551-TC; 71046-TC-FY; 71275-TC; 74175-TC; 76705-TC; 80048; 80053; 81003; 82150; 82550; 83605; 83690; 83735; 84100; 84443; 84484; 85025; 85610; 85651; 86038; 86850; 86900; 86901; 93005; 93010; 93306-TC; 99285-25; J1644

== ENCOUNTER 2019-04-18 11:58 | Inpatient (IN) | payer BC, OTHER ==
--- NOTE | 2019-04-18 12:39 | PDOC ---
History of Present Illness - General History Source: Patient Exam Limitations: No Limitations - History of Present Illness Initial Comments: 04/18/19 12:39 PCP: Dr. Blanca Potter HPI: 69yo F pmh gout, HTN, recent AMILCAR, presenting with LLE pain for over a week and inability to bear weight for 4 days. Patient complains of worsening LLE pain in the knee, ankle, and MTP joints with associated erythema and inability to tolerate weight on the extremity. Patient was offered an injection by PCP but declined, continued to worsen to the point of difficulty ambulating. Recently hospitalized at [facility] for complications following a January 2019 hernia repair. Reports 1.5 month hospitalization ending 04/03 with dehydration, AMILCAR, ?transient Afib. Reports being on colchicine before, does not remember dose, states that it didn't help her. Denies any trauma to the LLE, no swelling aside from affected joints, no pain overlying the muscles, denies SOB, cough, palpitations. Denies diabetes, but reports BGM 225 today per EMS, elevated blood sugar during her hospitalization. Denies fevers, chills, nausea, vomiting, chest pain. All: PCN, Amox Meds: Per chart PMH: As above PSH: Per chart <Deon Ruff - Last Filed: 04/18/19 19:00> <Janett Veliz - Last Filed: 04/19/19 14:57> - General Chief Complaint: Pain, Acute Stated Complaint: BILATERAL LOWER EXTREMITY PAIN Time Seen by Provider: 04/18/19 12:36 Past History - Travel Traveled outside of the country in the last 30 days: No Close contact w/someone who was outside of country & ill: No - Past Medical History Cardiac Disorders: Yes (HTN) COPD: No HTN: Yes Hypercholesterolemia: Yes Seizures: No (Gout) - Psycho Social/Smoking Cessation Hx Smoking Status: No Smoking History: Never smoked Have you smoked in the past 12 months: No Number of Cigarettes Smoked Daily: 0 Information on smoking cessation initiated: No Hx Alcohol Use: No Drug/Substance Use Hx: No Substance Use Type: None Hx Substance Use Treatment: No <Deon Ruff - Last Filed: 04/18/19 19:00> <Janett Veliz - Last Filed: 04/19/19 14:57> - Past Medical History Allergies/Adverse Reactions: Allergies Allergy/AdvReac Type Severity Reaction Status Date / Time Penicillins Allergy Intermediate Verified 04/18/19 12:27 amoxicillin [Amoxicillin] Allergy Mild Verified 04/18/19 12:27 Home Medications: Ambulatory Orders Clonidine Patch [Catapres Tts Patch -] 0.3 mg TD WEEKLY 04/18/19 Omeprazole 20 mg PO DAILY 04/18/19 Citric Acid/Sodium Citrate [Bicitra Oral Solution] 30 ml PO DAILY #150 ml Colchicine [Colcrys] 0.6 mg PO DAILY #30 cap 04/19/19 Prednisone See Taper PO DAILY #17 tablet 04/19/19 hydrALAZINE HCL [Apresoline -] 25 mg PO TID tablet 04/19/19 Review of Systems - Review of Systems Able to Perform ROS?: Yes Is the patient limited Upper Sorbian proficient: Yes Constitutional: No: Chills, Fever HEENTM: No: Blurred Vision, Nose Congestion, Throat Pain Respiratory: No: Cough, Shortness of Breath Cardiac (ROS): No: Chest Pain, Edema, Irregular Heart Rate, Chest Tightness ABD/GI: No: Constipated, Diarrhea, Nausea, Vomiting : No: Burning, Dysuria, Frequency Musculoskeletal: Yes: See HPI, Gout, Joint Pain, Joint Swelling. No: Muscle Pain, Muscle Weakness, Neck Pain Integumentary: Yes: See HPI, Erythema. No: Bruising, Lesions, Rash Neurological: No: Headache, Numbness, Tingling, Weakness Endocrine: No: Increased Thirst, Increased Urine, Unexplained Weight Gain, Unexplained Weight Loss Hematologic/Lymphatic: No: Anemia, Blood Clots, Easy Bleeding All Other Systems: Reviewed and Negative <Deon Ruff - Last Filed: 04/18/19 19:00> *Physical Exam - Vital Signs Last Vital Signs Temp Pulse Resp BP Pulse Ox 97.9 F 81 16 140/45 L 100 04/18/19 12:05 04/18/19 12:05 04/18/19 12:05 04/18/19 12:05 04/18/19 12:05 - Physical Exam 04/18/19 13:29 Vitals reviewed, AFVSS GEN: Well appearing, appears stated age, NAD, comfortable. AAOx3. HEENT: NCAT, EOMI, PERRL. Sclera anicteric, noninjected. No facial asymmetry. Moist mucous membranes. Normal voice. Trachea midline. CV: RRR, S1/S2, no murmurs / rubs / gallops appreciated. LUNG: CTAB, normal work of breathing. No wheezes, rales, rhonchi. No cough. Speaking full sentences. GI: Soft, NTND, +BS, no guarding, no rebound. No masses. Neg CVAT b/l. EXTREMITIES: 2+ distal pulses. No LE edema. Erythematous, tender L knee, ankle, MTP. No overlying skin breaks or effusions. SKIN: Warm, dry, no rashes appreciated, non-jaundiced. PSYCH: Normal mood and affect. Cooperative and appropriate. NEURO: CN grossly intact. Moving all extremities well. Normal strength and sensation grossly. <Deon Ruff - Last Filed: 04/18/19 19:00> - Vital Signs Last Vital Signs Temp Pulse Resp BP Pulse Ox 97.7 F 80 18 127/68 100 04/19/19 10:00 04/19/19 10:00 04/19/19 10:00 04/19/19 10:00 04/18/19 20:11 <Janett Veliz - Last Filed: 04/19/19 14:57> ED Treatment Course - LABORATORY CBC & Chemistry Diagram: 04/18/19 14:40 04/18/19 14:40 <Deon Ruff - Last Filed: 04/18/19 19:00> - LABORATORY CBC & Chemistry Diagram: 04/19/19 07:43 04/19/19 07:43 - ADDITIONAL ORDERS Additional order review: 04/18/19 14:40 RBC 4.62 MCV 80.3 MCHC 31.5 L RDW 16.6 H MPV 11.4 H Neutrophils % 79.4 D Lymphocytes % 13.1 D Monocytes % 6.9 Eosinophils % 0.0 D Basophils % 0.6 - RADIOLOGY Radiology Studies Ordered: Category Date Time Status ANKLE & FOOT-LEFT* [RAD] Stat Radiology 04/18/19 16:23 Completed KNEE 3 POS-LEFT [RAD] Stat Radiology 04/18/19 16:24 Completed - Medications Given in the ED: ED Medications Discontinued Medications Generic Name Dose Route Start Last Admin Trade Name Freq PRN Reason Stop Dose Admin Acetaminophen 975 mg 04/18/19 15:52 04/18/19 16:36 Tylenol - PO 04/18/19 15:53 975 mg ONCE ONE Administration Clonidine HCl 0.3 mg 04/18/19 19:45 04/18/19 23:00 Catapres Tts Patch - TD Not Given Q7D DEB Ketorolac Tromethamine 30 mg 04/18/19 14:21 04/18/19 14:49 Toradol Injection - IM 04/18/19 14:22 30 mg ONCE ONE Administration Oxycodone HCl 10 mg 04/18/19 14:21 04/18/19 14:49 Roxicodone - PO 04/18/19 14:22 10 mg ONCE ONE Administration Prednisone 60 mg 04/18/19 14:22 04/18/19 14:49 Deltasone - PO 04/18/19 14:23 60 mg ONCE ONE Administration <KerenJanett Álvaro - Last Filed: 04/19/19 14:57> Medical Decision Making - Medical Decision Making 04/18/19 13:06 69yo F PMH gout, HTN, presenting with subacute gout flare. History notable for complaint only of joint pain / difficulty with ambulation 2/2 pain. Exam notable for 2x red, swollen, painful ROM joints, stable vitals. DDX: Gout flare , other rhematologic disorder, unlikely septic arthritis (multiple joints), unlikely DVT given clinical exam. - CBC, CMP, Coag - Naproxen vs Prednisone 04/18/19 14:23 - Toradol 30 IM - Prednisone 60 PO - Oxycodone Dispo with prednisone, oxycodone 04/18/19 14:47 - Spoke with Dr. Potter, agrees with plan, will see patient for followup if she is ambulatory / safe for discharge 04/18/19 15:35 - 12.9 leukocytosis - 1.4 Cr, c/w mild AMILCAR DDX: Gout Flare 04/18/19 15:52 - Patient with continued pain - 975 PO Tylenol ordered 04/18/19 16:40 - Patient unable to ambulate safely, continued pain - Will admit for management of acute gout flare 04/18/19 16:40 - Spoke with Dr. Radha Simon, she requests hospitalist admission - Microblog sent 04/18/19 17:50 - Sign out given to Dr. Parks Patient Admitted to Med/Surg <Deon Ruff - Last Filed: 04/18/19 19:00> Discharge - Discharge Information Problems reviewed: Yes - Admission No <Deon Ruff - Last Filed: 04/18/19 19:00> <Janett Veliz - Last Filed: 04/19/19 14:57> - Discharge Information Clinical Impression/Diagnosis: Gout attack Qualifiers: Gout site: knee Gout etiology: unspecified cause Laterality: left Qualified Code(s): M10.9 - Gout, unspecified Condition: Stable
--- NOTE | 2019-04-18 13:07 | PDOC ---
Attending Attestation - Resident Resident Name: SpeedyDeon - ED Attending Attestation I have performed the following: I have examined & evaluated the patient, The case was reviewed & discussed with the resident, I agree w/resident's findings & plan - HPI HPI: 04/18/19 14:22 69yo F pmh gout, HTN, recent AMILCAR, presenting with LLE pain (knee and ankle) for over a week and inability to bear weight for 4 days. Patient complains of worsening LLE pain in the knee, ankle, and MTP joints with associated erythema and inability to tolerate weight on the extremity. Patient was offered an injection by PCP but declined, continued to worsen to the point of difficulty ambulating. Recently hospitalized at [facility] for complications following a January 2019 hernia repair, dc'd 04/03/19, c/b dehydration, AMILCAR and transient AFib.. Reports being on colchicine before, does not remember dose, states that it didn' t help her. took Oxycodone without effect. Denies any trauma to the LLE, no swelling aside from affected joints, no fevers , denies SOB, cough, palpitations. Denies diabetes, but reports BGM 225 today per EMS, elevated blood sugar during her hospitalization. PCP: Dr. Blanca Potter - Physicial Exam PE: 04/18/19 13:07 Agree with the resident's HPI and PE as documented in the electronic medical record. NAD, well appearing, EOMI, PERRL, nl conjunctiva, anicteric; neck supple. lungs clear, RRR, abdomen soft nontender. no rebound, guarding. Back nontender. RUCKER x4, no focal neuro deficits. No peripheral edema. normal color for ethnicity , WWP. +erythema and warmth over left medial malleolus and left anterolateral knee, ROM intact, no fluid collection. soft compartments. 04/18/19 14:24 - Medical Decision Making 04/18/19 14:25 Vital Signs Temp Pulse Resp BP Pulse Ox 97.9 F 81 16 140/45 L 100 04/18/19 12:05 04/18/19 12:05 04/18/19 12:05 04/18/19 12:05 04/18/19 12:05 Differential diagnosis includes gouty arthritis, inflammatory arthritis, septic arthritis, cellulitis, Soft compartments no evidence of septic arthritis no limitations in the range of motion. Symptoms are most consistent with gouty arthritis given her flares has had flare in the MTP and the ankle joints but never in the knee. No trauma no x-rays are indicated. Will treat with analgesia, IM Toradol, oxycodone, prednisone. Will not send home patient with prolonged course of NSAIDs given her recent AMILCAR on admission after hernia prior Clinical call back with her primary doctor, Dr Potter Laboratory results with mild leukocytosis 12 point 9K this could be inflammatory in nature given her gouty flare, no fevers no infectious etiology noted. Creatinine is borderline between 1.4-1.3 the previous labs, no NSAIDs will be discharged on. pt only given one time dose of toradol for analgesia, with some effect. She also has positive RAMU screen from previous which may point towards an inflammatory state and needs rheumatology and PMD follow-up We will treat as gouty arthritis flare, prednisone x5 days, as needed oxycodone , Tylenol for more mild pain as needed, no NSAIDs, initially planned for DC with pain control, which had improved, but unable to ambulate safely. 04/18/19 16:34 pt unable to ambulate, unsteady due to the pain, though much improved will admit for gout flare, supportive care pain control, med management, PMD Dr Potter, who was made aware. admitting to Dr Simon, however, defer to hospitalist team. 04/19/19 14:56 04/19/19 14:56 Discharge - Discharge Information Problems reviewed: Yes Clinical Impression/Diagnosis: Gout attack Qualifiers: Gout site: knee Gout etiology: unspecified cause Laterality: left Qualified Code(s): M10.9 - Gout, unspecified Condition: Stable - Admission Yes - Follow up/Referral - Patient Discharge Instructions - Post Discharge Activity
[2019-04-18] MEDS ORDERED: KETOROLAC TROMETHAMINE 30 MG/1 ML VIAL IM ONE (14:21)
[2019-04-18] MEDS ORDERED: oxyCODONE HCL 5 MG TABLET PO ONE (14:21)
[2019-04-18] MEDS ORDERED: predniSONE 20 MG TABLET (UD) PO ONE (14:22)
[2019-04-18] MEDS ORDERED: predniSONE 20 MG TABLET (UD) ONE (14:25)
[2019-04-18] MEDS ORDERED: oxyCODONE HCL 5 MG TABLET ONE (14:25)
[2019-04-18] MEDS ORDERED: KETOROLAC TROMETHAMINE 30 MG/1 ML VIAL ONE (14:25)
[2019-04-18 15:00] LABS: BASO % 0.6 % (0-2.0); HEMATOCRIT 37.1 % (32.4-45.2); HEMOGLOBIN 11.7 GM/dL (10.7-15.3); LYMPH % 13.1 % (8-40); MCH 25.3 pg (25.7-33.7); MCHC 31.5 g/dl (32.0-36.0); MEAN CELL VOLUME 80.3 fl (80-96); MEAN PLT VOLUME 11.4 fl (7.5-11.1); MONO % 6.9 % (3.8-10.2); NEUT % 79.4 % (42.8-82.8); PLATELET COUNT 140 K/MM3 (134-434); RBC 4.62 M/mm3 (3.60-5.2); RDW 16.6 % (11.6-15.6); WHITE BLOOD COUNT 12.9 K/mm3 (4.0-10.0)
[2019-04-18 15:29] LABS: ALBUMIN 3.1 g/dl (3.4-5.0); BILIRUBIN,TOTAL 1.5 mg/dL (0.2-1); BLOOD UREA NITROGEN 20.1 mg/dL (7-18); CALCIUM 9.3 mg/dL (8.5-10.1); CREATININE 1.4 mg/dL (0.55-1.3); POTASSIUM 4.1 mmol/L (3.5-5.1); TOT PROT 7.7 g/dl (6.4-8.2)
[2019-04-18] MEDS ORDERED: ACETAMINOPHEN 500 MG TABLET (FP) PO ONE (15:52)
[2019-04-18] MEDS ORDERED: ACETAMINOPHEN 325 MG TABLET (FP) ONE (16:35)
--- NOTE | 2019-04-18 18:26 | HP ---
CHIEF COMPLAINT: Pain in multiple joints of the LLE PCP: Dr. Blanca Potter HISTORY OF PRESENT ILLNESS: Pt. nadira 69 y.o. F w/ PMHx. of Gout (diagnosed 4 years ago not on maintenance therapy) and HTN presents for 4 days of worsening pain in her knee(which has never happened before), ankle and metatarsals of her left leg. Pt. states that she was never prescribed Allopurinol but was taking colchicine at home until discharge from [facility]. (Pt. was admitted to [facility] for about 6 weeks because of complication following sleeve gastrectomy repair; Pt. states she was in acute renal failure but never received Dialysis. Pt. reports being in atrial fibrillation but never received anticoagulation). Pt. staets on ED arrival pain was 10/10 in severity and and was not able to ambulate. Currently Pt. states pain is 5/10 in severity. Pain is sharp and throbbing and worsens with movement. Pt. states left ankle and foot is swollen and now her knee is affected. Pt. states that she could not bend her legs on ED arrival but now is able to bend them a little more. Pt. states she takes an OTC topical ointment from [employer] to treat her gout. Pt. states her last gout attack was about a year ago and the previous one was about 2 years prior. Pt. staets she was hospitlaized only once before for a gout attack. Pt. states that while she was on colchicine in the past, it was not effective for her(many more gout attack then just the last 2 which she states?). Pt. denies any fever, chills, chest pain, shortness of breath, numbness/tingling, weakness in extremities, diarrhea or changes in urinary or bowel habits. Called Pharmacy to reconcile medications. Pt. received Aldactone 50mg Daily, Hydralazine 50mg TID and Diltiazem ER 120mg Daily in early February as a [address] Harper ([facility] physician?). Call placed to [facility] Pt. was admitted with a BUN/Cr. of 122/6.3 and Pt. was discharged with a BUN of 26/1.0 and eGFR of 45. Pt. required lengthy hospital stay because of esophageal candidiasis with strictures. ARF was attributed to diuretics, dehydration and decreased PO intake. ER course was notable for: (1)CMP, CBC, Toradol 30mg IM, Oxycodone, Tylenol 975mg, Prednisone 60mg PO (2) Foot X-rays ordered (3) Recent Travel: No PAST MEDICAL HISTORY: PAST SURGICAL HISTORY: Social History: Smoking: Alcohol: Drugs: Allergies Penicillins Allergy (Intermediate, Verified 04/18/19 12:27) amoxicillin [Amoxicillin] Allergy (Mild, Verified 04/18/19 12:27) HOME MEDICATIONS: Home Medications Medication Instructions Recorded Pantoprazole Sodium [Protonix -] 40 mg PO DAILY 11/17/17 Clonidine Patch [Catapres Tts 0.3 mg TD WEEKLY 04/18/19 Patch -] Omeprazole 20 mg PO DAILY 04/18/19 REVIEW OF SYSTEMS As above PHYSICAL EXAMINATION Vital Signs - 24 hr 04/18/19 12:05 Temperature 97.9 F Pulse Rate 81 Respiratory 16 Rate Blood Pressure 140/45 L O2 Sat by Pulse 100 Oximetry (%) GENERAL: Awake, alert, and fully oriented, in no acute distress. HEAD: Normal with no signs of trauma. EYES: sclera anicteric, conjunctiva clear. No lid lag. EARS, NOSE, THROAT: Moist mucous membranes. LUNGS: Breath sounds equal, clear to auscultation bilaterally. No wheezes, and no crackles. No accessory muscle use. HEART: Regular rate and rhythm, normal S1 and S2 with murmur in left second intercostal space. MUSCULOSKELETAL: Decreased ROM of knee and ankly joints on left leg compared to right. No CVA tenderness. UPPER EXTREMITIES: Warm, well-perfused. No cyanosis. No clubbing. No peripheral edema. LOWER EXTREMITIES: 2+ dorsal pedal pulses, warm, well-perfused. No calf tenderness. Trace edema. Erythema on dorsum of left foot, along bilateral aspects of the malleolus, and the anterior lateral aspect of the knee. NEUROLOGICAL: Normal speech. Gait not assessed, Pt. in pain with movement. No numbness. No weakness. PSYCHIATRIC: Cooperative. Good eye contact. Appropriate mood and affect. SKIN: As above Laboratory Results - last 24 hr 04/18/19 04/18/19 14:40 14:40 WBC 12.9 H RBC 4.62 Hgb 11.7 Hct 37.1 MCV 80.3 MCH 25.3 L MCHC 31.5 L RDW 16.6 H Plt Count 140 D MPV 11.4 H Absolute Neuts (auto) 10.2 H Neutrophils % 79.4 D Lymphocytes % 13.1 D Monocytes % 6.9 Eosinophils % 0.0 D Basophils % 0.6 Nucleated RBC % 0 Sodium 133 L Potassium 4.1 Chloride 99 Carbon Dioxide 23 Anion Gap 11 BUN 20.1 H Creatinine 1.4 H Est GFR (CKD-EPI)AfAm 44.95 Est GFR (CKD-EPI)NonAf 38.78 Random Glucose 146 H Calcium 9.3 Total Bilirubin 1.5 H AST 15 ALT 13 Alkaline Phosphatase 65 Total Protein 7.7 Albumin 3.1 L ASSESSMENT/PLAN: Pt. nadira 69 y.o. F w/ PMHx. of Gout (diagnosed 4 years ago not on maintenance therapy) and HTN presents for 4 days of worsening pain in her knee(which has never happened before), ankle and metatarsals of her left leg. #Gout Flare Pt. received 60mg Prednisone in ED, in light of 3 joints being affected, literature( Uptodate) suggests that we should use IV steroids (Solumedrol 20mg BID). Pt. endorses significant relief in pain and ROM after 60mg PO so will not start until AM After reduction of flare would consider starting on Allopurinol to prevent future flares, discussed with Pt. f/u Uric Acid level Would not start NSAIDs given Pt.s age and renal function. Pt. does not respond to colchicine #HTN c/w Clonidine 0.3mg Patch weekly will start Hydralazine 25mg TID with holding parameters Pt. should f/u as outpatient for management of BP medications #AMILCAR on CKD At [facility]: BUN/Cr. of 122/6.3 and Pt. was discharged with a BUN of 26/1.0 and eGFR of 45. Pt. required lengthy hospital stay because of esophageal candidiasis with strictures. ARF was attributed to diuretics, dehydration and decreased PO intake BUN/ Cr. and eGFR is consistent with resolving AMILCAR from prior hospital admission. Pt. has elevation in Cr. here, will trend and rpt. chemistry in AM. will encourage PO intake. Avoid NSAIDs. #FEN no IVF encourage PO intake monitor electrolytes and replete as needed Sodium controlled diet #DVt Ppx. Hep SQ TID Visit type - Emergency Visit Emergency Visit: Yes ED Registration Date: 04/18/19 Care time: The patient presented to the Emergency Department on the above date and was hospitalized for further evaluation of their emergent condition. - New Patient This patient is new to me today: Yes Date on this admission: 04/18/19 - Critical Care Critical Care patient: No ATTENDING PHYSICIAN STATEMENT I saw and evaluated the patient. I reviewed the resident's note and discussed the case with the resident. I agree with the resident's findings and plan as documented. SUBJECTIVE: OBJECTIVE: ASSESSMENT AND PLAN:
--- NOTE | 2019-04-18 19:16 | PN ---
Teaching Attending Note Name of Resident: Lawrence Parks ATTENDING PHYSICIAN STATEMENT I saw and evaluated the patient. I reviewed the resident's note and discussed the case with the resident. I agree with the resident's findings and plan as documented. SUBJECTIVE: Patient is a 69 year old woman with a PMH of Penicillin allergy, Gout, HTN and Recent AMILCAR presenting with LLE pain (knee and ankle) for over a week and inability to bear weight for 4 days. Patient complains of worsening LLE pain in the knee, ankle, and MTP joints with associated erythema and inability to tolerate weight on the extremity. Patient was offered an injection by PCP but declined, continued to worsen to the point of difficulty ambulating. Recently hospitalized at [facility] for complications following a January 2019 hernia repair. Discharged on 04/03/2019 with AMILCAR due to dehydration and transient Afib. Reports being on colchicine before, does not remember dose, states that it didn' t help her. Took Oxycodone without effect. Denies any trauma to the LLE and no swelling aside from affected joints. Denies fevers, denies SOB, cough, palpitations, vomiting or dysuria. Denies diabetes, but reports BGM 225 today per EMS, elevated blood sugar during her recent hospitalization. Denies alcohol , tobacco or illicit drug use. No sick contacts or recent travels. OBJECTIVE: Alert Vital Signs Period Temp Pulse Resp BP Sys/Bruno Pulse Ox Last 24 Hr 97.9 F 81 16 140/45 100 HEENT: No Jaundice, eye redness or discharge, PERRLA, EOMI. Normocephalic, atraumatic. External ears are normal and hearing is grossly intact. No nasal discharge. Neck: Supple, nontender. No palpable adenopathy or thyromegaly. No JVD Chest: Good effort. Clear to auscultation and percussion. Heart: Regular. No S3, rub or murmur Abdomen: Not distended, soft, nontender and no HSM. No rebound or guarding. Normal bowel sounds. Ext: Peripheral pulses intact. No leg edema. Erythema and warmth over left medial malleolus and left anterolateral knee. Skin: Warm and dry. No petechiae, rash or ecchymosis. Neuro: Alert. Oriented x3. CN 2-12 grossly intact. Sensation grossly intact in all four extremities and DTR are symmetric. Psych: Appropriate mood and affect. Good insight. Home Medications Medication Instructions Recorded Clonidine Patch [Catapres Tts 0.3 mg TD WEEKLY 04/18/19 Patch -] Omeprazole 20 mg PO DAILY 04/18/19 Abnormal Lab Results 04/18/19 04/18/19 14:40 14:40 WBC 12.9 H MCH 25.3 L MCHC 31.5 L RDW 16.6 H MPV 11.4 H Absolute Neuts (auto) 10.2 H Sodium 133 L BUN 20.1 H Creatinine 1.4 H Random Glucose 146 H Total Bilirubin 1.5 H Albumin 3.1 L ASSESSMENT AND PLAN: 1. Gouty arthritis flare up - Patient being treated with solumedrol and colchicine. Xrays of knee and ankle are unremarkable. Hyperbilirubinemia unexplained - will trend and get upper abdominal sonogram if it persists. Will continue comprehensive care for all of patients comorbid conditions. 2. Hypoalbuminemia - Possibly due to combined effects of malnutrition and inflammation associated with comorbid chronic conditions. Will ensure adequate dietary protein intake and also consult gang boss. 3. Undiagnosed DM We will get HbA1c and implement sliding scale insulin regimen. Provide comprehensive diabetes care with patient teaching and counseling about the importance of adherence to prescribed diabetes regimen, euglycemia, eye care and foot care. 4. AMILCAR - Etiology unclear. Will consult nephrology and avoid nephrotoxic agents such as NSAIDS, aminoglycosides, contrast dyes and certain Alternative medicine products. 5. Hypertension - Restart suitable outpatient antihypertensive drugs when clinically appropriate. Revise regimen to ensure [id number] excellent BP control and parliamentary counsel patient on the injurious effects of uncontrolled hypertension. Nonpharmacologic measures to control hypertension like weight loss , salt restriction and exercise discussed. Importance of adherence to treatment regimen and attainment of normotension emphasized. 6. DVT prophylaxis - Heparin 5000u sq tid. 7. Advance directives - Full code
[2019-04-18 19:21] LABS: URIC ACID 7.6 mg/dL (2.6-7.2)
[2019-04-18] MEDS ORDERED: cloNIDine-TTS 0.3 MG /24 HRS PATCH.TDWK TD SCH (19:45)
[2019-04-18 20:23] VITALS: BMI 27.6
[2019-04-18] MEDS: hydrALAZINE HCL 25 MG TABLET (FP) PO SCH (21:21)
[2019-04-18] MEDS: COLCHICINE 0.6 MG CAP PO SCH (21:21)
[2019-04-18] MEDS: HEPARIN NA (PORCINE) 5,000 UNITS/ML 1ML VIAL SQ SCH (21:22)
[2019-04-18] MEDS ORDERED: hydrALAZINE HCL 25 MG TABLET (FP) PO SCH (22:00)
[2019-04-19] MEDS: hydrALAZINE HCL 25 MG TABLET (FP) PO SCH ×2 (05:58→14:38)
[2019-04-19] MEDS: HEPARIN NA (PORCINE) 5,000 UNITS/ML 1ML VIAL SQ SCH ×2 (05:58→14:39)
[2019-04-19 08:47] LABS: HEMATOCRIT 33.1 % (32.4-45.2); HEMOGLOBIN 10.8 GM/dL (10.7-15.3); MCH 25.3 pg (25.7-33.7); MCHC 32.6 g/dl (32.0-36.0); MEAN CELL VOLUME 77.7 fl (80-96); PLATELET COUNT 139 K/MM3 (134-434); RBC 4.27 M/mm3 (3.60-5.2); RDW 16.6 % (11.6-15.6); WHITE BLOOD COUNT 8.1 K/mm3 (4.0-10.0)
[2019-04-19 08:59] LABS: INR 1.19 (0.83-1.09); PROTHROMBIN TIME (PATIENT) 14.1 SEC (9.7-13.0)
[2019-04-19 09:13] LABS: BLOOD UREA NITROGEN 33.1 mg/dL (7-18); CALCIUM 9.1 mg/dL (8.5-10.1); CREATININE 2.1 mg/dL (0.55-1.3); MAGNESIUM 1.9 mg/dL (1.8-2.4); PHOSPHOROUS 4.7 mg/dL (2.5-4.9); POTASSIUM 4.4 mmol/L (3.5-5.1)
--- NOTE | 2019-04-19 09:57 | DS ---
Physical Exam: SUBJECTIVE: Patient seen and examined Patient is feeling better admitted for gouty Left knee ATTACK, since was unable to ambulate. OBJECTIVE: Vital Signs Temperature 98.2 F 04/19/19 06:00 Pulse Rate 56 L 04/19/19 06:00 Respiratory Rate 18 04/19/19 06:00 Blood Pressure 153/75 04/19/19 06:00 O2 Sat by Pulse Oximetry (%) 100 04/18/19 20:11 GENERAL: The patient is awake, alert, and fully oriented, in no acute distress. HEAD: Normal with no signs of trauma. EYES: PERRL, extraocular movements intact, sclera anicteric, conjunctiva clear. ENT: Ears normal, oropharynx clear without exudates, moist mucous membranes. NECK: Trachea midline, full range of motion, supple. LUNGS: Breath sounds equal, clear to auscultation bilaterally, no wheezes, no crackles, no accessory muscle use. HEART: Regular rate and rhythm, S1, S2 without murmur, rub or gallop. ABDOMEN: Soft, nontender, nondistended, normoactive bowel sounds, no guarding, no rebound, no hepatosplenomegaly, no masses. EXTREMITIES: 2+ pulses, warm, well-perfused, no edema. good ROM NEUROLOGICAL: Cranial nerves II through XII grossly intact. Normal speech, gait is stable . PSYCH: Normal mood, normal affect. SKIN: Warm, dry, normal turgor, no rashes or lesions noted. Laboratory Results - last 24 hr 04/18/19 04/18/19 04/19/19 14:40 14:40 07:43 WBC 12.9 H 8.1 RBC 4.62 4.27 Hgb 11.7 10.8 Hct 37.1 33.1 MCV 80.3 77.7 L MCH 25.3 L 25.3 L MCHC 31.5 L 32.6 RDW 16.6 H 16.6 H Plt Count 140 D 139 MPV 11.4 H 12.0 H Absolute Neuts (auto) 10.2 H Neutrophils % 79.4 D Lymphocytes % 13.1 D Monocytes % 6.9 Eosinophils % 0.0 D Basophils % 0.6 Nucleated RBC % 0 PT with INR INR Sodium 133 L Potassium 4.1 Chloride 99 Carbon Dioxide 23 Anion Gap 11 BUN 20.1 H Creatinine 1.4 H Est GFR (CKD-EPI)AfAm 44.95 Est GFR (CKD-EPI)NonAf 38.78 Random Glucose 146 H Uric Acid 7.6 H Calcium 9.3 Phosphorus Magnesium Total Bilirubin 1.5 H AST 15 ALT 13 Alkaline Phosphatase 65 Total Protein 7.7 Albumin 3.1 L 04/19/19 04/19/19 07:43 07:43 WBC RBC Hgb Hct MCV MCH MCHC RDW Plt Count MPV Absolute Neuts (auto) Neutrophils % Lymphocytes % Monocytes % Eosinophils % Basophils % Nucleated RBC % PT with INR 14.10 H INR 1.19 H Sodium 135 L Potassium 4.4 Chloride 100 Carbon Dioxide 23 Anion Gap 12 BUN 33.1 H Creatinine 2.1 H Est GFR (CKD-EPI)AfAm 27.53 Est GFR (CKD-EPI)NonAf 23.75 Random Glucose 164 H Uric Acid Calcium 9.1 Phosphorus 4.7 Magnesium 1.9 Total Bilirubin AST ALT Alkaline Phosphatase Total Protein Albumin Current Medications Generic Name Dose Route Start Last Admin Trade Name Freq PRN Reason Stop Dose Admin Clonidine HCl 0.3 mg 04/23/19 10:00 Catapres Tts Patch - TD Q7D DEB Colchicine 0.6 mg 04/18/19 19:45 04/18/19 21:21 Colcrys PO 0.6 mg DAILY DEB Administration Heparin Sodium (Porcine) 5,000 unit 04/18/19 22:00 04/19/19 05:58 Heparin - SQ 5,000 unit TID DEB Administration Hydralazine HCl 25 mg 04/18/19 22:00 04/19/19 05:58 Apresoline - PO 25 mg TID DEB Administration Pantoprazole Sodium 20 mg 04/19/19 10:00 Protonix - PO DAILY [facility] Home Medications Medication Instructions Recorded Clonidine Patch [Catapres Tts 0.3 mg TD WEEKLY 04/18/19 Patch -] Omeprazole 20 mg PO DAILY 04/18/19 Colchicine [Colcrys] 0.6 mg PO DAILY #30 cap 04/19/19 hydrALAZINE HCL [Apresoline -] 25 mg PO TID tablet 04/19/19 HOSPITAL COURSE: Date of Admission:04/18/19 Date of Discharge: 04/19/19 Pt. is a 69 y.o. F w/ PMHx. of Gout (diagnosed 4 years ago not on maintenance therapy) and HTN presents for 4 days of worsening pain in her left knee, and was unable to ambulate. #Acute gouty attack of right knee; given steroid 60mg last night , will dc her on tapered dose of steroid with protonix , follow up with office assistant ordered colchicine, fluid intake 2-3 liter per day, since patient has hx of gastric Bypass and on protoin diet without taking enough fluid. ordered citric acid 30ml daily for 5 days # ARF cr 1.4-->2.1 today , IVF x 1 liter , follow up with nephro for further w/u since uric acid can affect her kidneys as well. #HTN continue Clonidine 0.3mg Patch weekly, Hydralazine 25mg TID continue home meds ARF starting on IVF at 125ml per hour also recommended the patient to be on 2-3 liter of fluid daily, follow up with kidney doctor for further w/u will dc patient home. Minutes to complete discharge: 35 Discharge Summary Problems reviewed: Yes Reason For Visit: ACUTE GOUT Current Active Problems Gout attack (Acute) Condition: Stable - Instructions Diet, Activity, Other Instructions: drink 2-3 liter of water take daily colchicine 0.6mg added citrate 30ml daily to alkalinze your urine to get rid of uric acid from your system given tapered dose steroid take it with the protonix or nexium 40mg daily for 6 days see your primary care within this week, need to be on allopurinol to avoid further gouty attacks. you were admitted for acute gouty flare up Prednisone 40mg=(4x10mg) on 03/19/2019 with food Prednisone 40mg=(4x10mg) on 03/20/2019 with food Prednisone 30mg=(3x10mg) on 03/21/2019 with food prednisone 30mg=(3x10mg) on 03/22/2019 with food prednisone 20mg=(2x10mg) on 03/21/2019 with food prednisone 10mg on 03/22/2019 with food Take with nexium or protonix and with food Please follow up with the kidney doctor since Uric acid can affect your kidneys. your creatinine level went up and we gave you intravenous fluid. please follow up with your primary and kidney doctor to avoid kidney damage. Referrals: Blanca Potter MD [Primary Care Provider] - 1 Week Jabier Santillan MD [Staff Physician] - 1 Week Disposition: HOME - Home Medications Comprehensive Discharge Medication List: Ambulatory Orders Clonidine Patch [Catapres Tts Patch -] 0.3 mg TD WEEKLY 04/18/19 Omeprazole 20 mg PO DAILY 04/18/19 Colchicine [Colcrys] 0.6 mg PO DAILY #30 cap 04/19/19 hydrALAZINE HCL [Apresoline -] 25 mg PO TID tablet 04/19/19 This patient is new to me today: Yes Date on this admission: 04/19/19 Emergency Visit: Yes ED Registration Date: 04/18/19 Care time: The patient presented to the Emergency Department on the above date and was hospitalized for further evaluation of their emergent condition. Critical Care patient: No - Discharge Referral Referred to [facility] Med P.C.: No
[2019-04-19] MEDS ORDERED: PANTOPRAZOLE 20 MG TABLET PO SCH (10:00)
[2019-04-19] MEDS ORDERED: predniSONE 20 MG TABLET (UD) PO SCH (10:00)
[2019-04-19] MEDS: COLCHICINE 0.6 MG CAP PO SCH (10:08)
[2019-04-19] MEDS ORDERED: SODIUM CHLORIDE 1,000 ML IV SCH ×3 (10:30)
--- NOTE | 2019-04-19 15:59 | EKG ---
Test Reason : Blood Pressure : / mmHG Vent. Rate : 049 BPM Atrial Rate : 049 BPM P-R Int : 110 ms QRS Dur : 116 ms QT Int : 496 ms P-R-T Axes : -01 030 030 degrees QTc Int : 448 ms SINUS BRADYCARDIA WITH SHORT PA INCOMPLETE RIGHT BUNDLE BRANCH BLOCK BORDERLINE ECG WHEN COMPARED WITH ECG OF 17-NOV-2017 18:16, PA INTERVAL HAS DECREASED INCOMPLETE RIGHT BUNDLE BRANCH BLOCK IS NOW PRESENT Confirmed by MD JERAMIE, IZA ([id number]) on 04/19/2019 3:59:11 PM Referred By: Confirmed By:IZA BOBO MD
[2019-04-19 17:14] VITALS: BP 136/68; PULSE 65; TEMP 98
[2019-04-23] MEDS ORDERED: cloNIDine-TTS 0.3 MG /24 HRS PATCH.TDWK TD SCH (10:00)
== END 2019-04-19 18:06 | disposition home or self-care (01) | DRG 554 ==
LOC: JER 11:58 → JERBED 17:49 → J8W 20:00
PROVIDERS: ADMIT Internal Medicine; ATTEND Internal Medicine
DX: M10.9 Gout, unspecified (principal); N17.9 Acute kidney failure, unspecified; E46 Unspecified protein-calorie malnutrition; I12.9 Hypertensive chronic kidney disease with stage 1 through stage 4 chronic kidney disease, or unspecified chronic kidney disease; N18.9 Chronic kidney disease, unspecified; E88.09 Other disorders of plasma-protein metabolism, not elsewhere classified; E11.9 Type 2 diabetes mellitus without complications; Z68.27 Body mass index [BMI] 27.0-27.9, adult; Z88.0 Allergy status to penicillin; Z98.84 Bariatric surgery status
CPT/HCPCS: 36415; 73562-TC-LT-FY; 73610-TC-LT-FY; 73630-TC-LT; 80048; 80053; 83735; 84100; 84550; 85025; 85027; 85610; 93005; 93010; 99285-25; J1644; J7030

== ENCOUNTER 2019-05-10 20:31 | Emergency (ER) | payer BC ==
[2019-05-10 20:35] VITALS: BMI 26.9
--- NOTE | 2019-05-10 22:08 | PDOC ---
History of Present Illness - General Chief Complaint: Blood Pressure Problem Stated Complaint: HYPERTENSION Time Seen by Provider: 05/10/19 21:36 History Source: Patient Exam Limitations: No Limitations - History of Present Illness Initial Comments: 69F PMH HTN presenting with elevated home BPs. states normal BPs usually 140- 150s systolic, and 70-80s diastolic. In past 2 days, BPs in 190s/90s. In march pt switched to clonidine patch for refractory HTN. Had no problem with BP control on patch until 2 days ago. Endorses right sided dull throbbing headache that is on/off in nature. Denies audio-visual changes, numbness, tingling, focal weakness. Denies chest pain, palpitations, sob, n/v/d, dysuria. Past History - Past Medical History Allergies/Adverse Reactions: Allergies Allergy/AdvReac Type Severity Reaction Status Date / Time Penicillins Allergy Intermediate Verified 05/10/19 20:35 amoxicillin [Amoxicillin] Allergy Mild Verified 05/10/19 20:35 Home Medications: Ambulatory Orders Clonidine Patch [Catapres Tts Patch -] 0.3 mg TD WEEKLY 04/18/19 Omeprazole 20 mg PO DAILY 04/18/19 Citric Acid/Sodium Citrate [Bicitra Oral Solution] 30 ml PO DAILY #150 ml Colchicine [Colcrys] 0.6 mg PO DAILY #30 cap 04/19/19 Prednisone See Taper PO DAILY #17 tablet 04/19/19 hydrALAZINE HCL [Apresoline -] 25 mg PO TID tablet 04/19/19 Cardiac Disorders: Yes (HTN) COPD: No HTN: Yes Hypercholesterolemia: Yes Seizures: No - Surgical History Abdominal Surgery: Yes (SLEEVE,HERNIA) - Psycho Social/Smoking Cessation Hx Smoking Status: No Smoking History: Never smoked Have you smoked in the past 12 months: No Number of Cigarettes Smoked Daily: 0 Hx Alcohol Use: No Drug/Substance Use Hx: No Substance Use Type: None Hx Substance Use Treatment: No Review of Systems - Review of Systems Able to Perform ROS?: Yes Comments:: CONSTITUTIONAL: Denies F / C HEENT: endorses mild dull headache; denies vision/hearing changes. RESP: Denies SOB, cough CARD: Denies chest pain, palpitations GI: Denies N / V / D, abdominal pain, bloody stool, inability to tolerate PO : Denies dysuria, inadequate urine SKIN: Denies rashes NEURO: Denies numbness, tingling, focal weakness MSK: Denies back pain *Physical Exam - Vital Signs Last Vital Signs Temp Pulse Resp BP Pulse Ox 97.9 F 75 18 163/85 100 05/10/19 20:32 05/10/19 21:45 05/10/19 21:45 05/10/19 21:45 05/10/19 21:45 - Physical Exam GEN: Well appearing, NAD, comfortable. AAOx3. HEENT: NC/AT. No facial asymmetry. Moist mucous membranes. Normal voice. Supple neck w/ FROM. CV: S1/S2, RRR, no m/r/g LUNG: CTAB, no wheezes, crackles, rales, rhonchi. GI: Soft, ndnt, +BS, no guarding, no rebound. No masses. MSK: 2+ distal pulses. equal pulses. No LE edema. No obvious deformities of all extremities. SKIN: Warm, dry, no rashes appreciated. PSYCH: Normal mood and affect. NEURO: Moving all extremities well. ED Treatment Course - LABORATORY CBC & Chemistry Diagram: 05/10/19 22:43 05/10/19 22:43 Medical Decision Making - Medical Decision Making 05/10/19 22:02 69F PMH refractory HTN on clonidine patch presenting with elevated home BPs. states dull throbbing headache o/w ASx. unremarkable exam. BPs 163/85. will assess for end-organ damage. - CBC, CMP, trop - CXR - EKG - CT head EKG 2159 HR 57 VT 102 QRS 114 QTc 438; bradycardia, sinus, regular rate on strip ; low voltage; RBBB. RBBB present in prior 04/17/19 EKG. 05/10/19 23:40 labs reviewed, reassuring pt feeling improved f/u CT 05/11/19 00:[address] HEAD FINDINGS: The cerebral sulci and ventricles are normal in size for the patient' s age. There are no intracranial hemorrhages, extra-axial fluid collections or evidence of an intra-axial mass lesion. There is no clear evidence of chronic ischemic demyelination. Cerebral meredith/white matter differentiation is preserved, without clear evidence of an acute ischemic lesion at this time. Orbital and petrous structures, cerebellopontine angles, and posterior fossa appear unremarkable. The paranasal and mastoid sinuses are clear. IMPRESSION: Normal CT scan of the head. No evidence of acute or chronic ischemic change. No intracranial hemorrhages, extra-axial fluid collections or intra-axial mass lesion. THIS DOCUMENT HAS BEEN ELECTRONICALLY SIGNED Asaf Barton MD. DC home w/ pcp f/u Discharge - Discharge Information Problems reviewed: Yes Clinical Impression/Diagnosis: Elevated blood pressure reading Condition: Good Disposition: HOME - Admission No - Follow up/Referral Referrals: Blanca Potter MD [Primary Care Provider] - - Patient Discharge Instructions Patient Printed Discharge Instructions: DI for High Blood Pressure, How to Monitor Your Blood Pressure at Home Additional Instructions: Your labs and CAT scan were reassuring. Follow up with your primary care doctor on Friday 05/12 - You may need your hypertension medications adjusted. Return to the nearest Emergency Department if you experience: - severe headache, changes in your vision / hearing - chest pain, palpitations - shortness of breath - low urine output, abdominal pain - Post Discharge Activity
[2019-05-10 22:51] LABS: BASO % 0.8 % (0-2.0); EOS % 3.1 % (0-4.5); HEMATOCRIT 36.6 % (32.4-45.2); HEMOGLOBIN 11.9 GM/dL (10.7-15.3); LYMPH % 38.8 % (8-40); MCH 25.9 pg (25.7-33.7); MCHC 32.5 g/dl (32.0-36.0); MEAN CELL VOLUME 79.8 fl (80-96); MEAN PLT VOLUME 10.6 fl (7.5-11.1); MONO % 5.8 % (3.8-10.2); NEUT % 51.5 % (42.8-82.8); PLATELET COUNT 112 K/MM3 (134-434); RBC 4.59 M/mm3 (3.60-5.2); RDW 18.2 % (11.6-15.6); WHITE BLOOD COUNT 6.5 K/mm3 (4.0-10.0)
[2019-05-10 23:23] LABS: ALBUMIN 3.2 g/dl (3.4-5.0); BLOOD UREA NITROGEN 10.1 mg/dL (7-18); POTASSIUM 3.5 mmol/L (3.5-5.1); TOT PROT 6.6 g/dl (6.4-8.2)
--- NOTE | 2019-05-11 00:20 | PDOC ---
Documentation entered by Clary Aranda SCRIBE, acting as scribe for uJly Cobos DO. July Cobos DO: This documentation has been prepared by the Manoj strickland Lincy, SCRIBE, under my direction and personally reviewed by me in its entirety. I confirm that the documentation accurately reflects all work , treatment, procedures, and medical decision making performed by me. Attending Attestation - Resident Resident Name: Lawrence Rhodes - ED Attending Attestation I have performed the following: I have examined & evaluated the patient, The case was reviewed & discussed with the resident, I agree w/resident's findings & plan - HPI HPI: 05/10/19 22:30 The patient is a 69-year-old female with a past medical history significant for refractory HTN (started on Clonidine patch in March) who presents to the emergency department with two days of elevated blood pressure to the 190s/90s. The patient reports her baseline is 140-150 systolic and 70-80s diastolic, however, the past two days, the blood pressure was noted to be elevated. The patient endorses associated symptoms of an intermittent, dull left-sided headache for the past two days. Denies chest pain, shortness of breath, abdominal pain, or urinary symptoms. - Physicial Exam PE: 05/10/19 22:30 Agree with resident exam 05/11/19 00:19 - Medical Decision Making 05/11/19 00:19 69-year-old female with intermittent throbbing unilateral headache and elevated blood pressures at home Blood pressure decreased in the emergency department without intervention, patient is headache free at this time CT scan of the brain, labs, EKG showed no significant abnormalities Plan for DC home with primary care follow-up
[2019-05-11 00:41] VITALS: BP 156/78; PULSE 58; TEMP 98.6
--- NOTE | 2019-05-12 09:47 | EKG ---
Test Reason : Blood Pressure : / mmHG Vent. Rate : 057 BPM Atrial Rate : 057 BPM P-R Int : 102 ms QRS Dur : 114 ms QT Int : 450 ms P-R-T Axes : -07 -26 -12 degrees QTc Int : 438 ms SINUS BRADYCARDIA WITH SHORT UT LOW VOLTAGE QRS RIGHT BUNDLE BRANCH BLOCK INFERIOR INFARCT , AGE UNDETERMINED ABNORMAL ECG WHEN COMPARED WITH ECG OF 18-APR-2019 18:54, QRS AXIS SHIFTED LEFT INFERIOR INFARCT IS NOW PRESENT NONSPECIFIC T WAVE ABNORMALITY, WORSE IN INFERIOR LEADS NONSPECIFIC T WAVE ABNORMALITY, WORSE IN ANTERIOR LEADS Confirmed by Connie Miller ([id number]) on 05/12/2019 9:46:53 AM Referred By: Confirmed By:Connie Miller
== END 2019-05-11 00:42 | disposition home or self-care (01) ==
LOC: JER 20:31
DX: I10 Essential (primary) hypertension (principal); E78.00 Pure hypercholesterolemia, unspecified; Z98.84 Bariatric surgery status
CPT/HCPCS: 36415; 70450-TC; 71045-TC-FY; 80053; 84484; 85025; 93005; 93010; 99285-25

== ENCOUNTER 2019-11-15 15:54 | Inpatient (IN) | payer BC, OTHER ==
[2019-11-15] MEDS ORDERED: ASPIRIN 81 MG CHEWABLE TABLETS PO ONE (19:02)
--- NOTE | 2019-11-15 19:29 | PDOC ---
History of Present Illness - General History Source: Patient Exam Limitations: Clinical Condition - History of Present Illness Initial Comments: 11/15/19 19:24 Patient with past medical history of hypertension hyperlipidemia presented with complaint of sudden onset of weakness to right side of her body from upper extremity and lower extremity and right side of face upon wake this morning. Denies nausea, vomiting, dizziness, blurry vision or change in vision. Denies history of stroke. Denies chest pain, shortness of breath. Patient required feeling of weakness in right leg. Denies any other symptoms. Patient has not taken anything for symptoms Timing/Duration: reports: other (12hrs) Associated Symptoms: reports: numbness in legs/feet, weakness. denies: fever/chills, insomnia, loss of consciousness, muscle spasms, nausea/vomiting, ringing in ears, sleepy, slurred speech, tingling in legs/feet, trouble walking, vision changes <Sekou Chmaberlain - Last Filed: 11/15/19 22:55> <Jam Solis - Last Filed: 11/16/19 07:17> - General Chief Complaint: CVA/TIA Stated Complaint: WEAKNESS, NUMBNESS TO RIGHT HAND FINGERS Time Seen by Provider: 11/15/19 18:31 Past History - Medical History Cardiac Disorders: Yes (HTN) COPD: No HTN: Yes Hypercholesterolemia: Yes Seizures: No - Surgical History Abdominal Surgery: Yes (SLEEVE,HERNIA) - Reproductive History Is Patient Now?: No - Psycho-Social/Smoking History Smoking Status: No Smoking History: Never smoked Have you smoked in the past 12 months: No Number of Cigarettes Smoked Daily: 0 Information on smoking cessation initiated: No - Substance Abuse Hx (Audit-C & DAST Scrn) How often the patient has a drink containing alcohol: Never Score: In Men: 4 or > Positive; In Women: 3 or > Positive: 0 Screen Result (Pos requires Nsg. Audit-10AR): Negative In the last yr the pt used illegal drug/Rx for NonMed reason: No Score: Yes response is considered Positive: 0 Screen Result (Positive result requires Nsg. DAST-10): Negative <Sekou Chamberlain - Last Filed: 11/15/19 22:55> <Jam Solis - Last Filed: 11/16/19 07:17> - Medical History Allergies/Adverse Reactions: Allergies Allergy/AdvReac Type Severity Reaction Status Date / Time Penicillins Allergy Intermediate Verified 11/15/19 16:16 amoxicillin [Amoxicillin] Allergy Mild Verified 11/15/19 16:16 Home Medications: Ambulatory Orders Omeprazole 20 mg PO DAILY 04/18/19 Amlodipine Besylate/Benazepril [Amlodipine-Benazepril 5-20 mg] 1 each PO DAILY 11/15/19 Neuro Specific PMHX - Complaint Specific PMHX Glaucoma: No Herniated Disk: No Laminectomy: No Migraine: No Multiple Sclerosis: No Neuropathy: No TIA: Yes <Sekou Chamberlain - Last Filed: 11/15/19 22:55> Review of Systems - Review of Systems Able to Perform ROS?: Yes Is the patient limited French proficient: No Constitutional: No: Chills, Fever, Malaise HEENTM: No: Symptoms Reported, See HPI, Eye Pain, Blurred Vision, Tearing, Recent change in vision, Double Vision, Cataracts, Ear Pain, Ocular Prothesis, Ear Discharge, Nose Pain, Nose Congestion, Tinnitus, Nose Bleeding, Hearing Loss, Throat Pain, Throat Swelling, Mouth Pain, Dental Problems, Difficulty Swa llowing, Mouth Swelling, Other Respiratory: No: Symptoms reported, See HPI, Cough, Orthopnea, Shortness of Breath, SOB with Exertion, SOB at Rest, Stridor, Wheezing, Productive cough, Hemoptysis, Other Cardiac (ROS): No: Symptoms Reported, See HPI, Chest Pain, Edema, Irregular Heart Rate, Lightheadedness, Palpitations, Syncope, Chest Tightness, Other ABD/GI: No: Symptoms Reported, Nausea, Vomiting, Abdominal cramping : No: Symptoms Reported, Burning, Frequency, Urgency Musculoskeletal: No: Symptoms Reported Neurological: Yes: Symptoms reported, See HPI, Numbness (right side of her body), Weakness (righ side of her body), Unsteady Gait, Ataxia. No: Headache, Seizure, Dizziness All Other Systems: Reviewed and Negative <Sekou Chamberlain - Last Filed: 11/15/19 22:55> *Physical Exam - Vital Signs Last Vital Signs Temp Pulse Resp BP Pulse Ox 97.9 F 61 19 125/71 99 11/15/19 16:14 11/15/19 16:14 11/15/19 16:14 11/15/19 16:14 11/15/19 16:14 - Physical Exam 11/15/19 19:27 GENERAL: Well developed, well nourished. Awake and alert. No acute distress. HEENT: Normocephalic, atraumatic. PERRLA, EOMI. No conjunctival pallor. Sclera are non- icteric. Moist mucous membranes. Oropharynx is clear. NECK: Supple. Full ROM. No JVD. Carotid pulses 2+ and symmetric, without bruits. No thyromegaly. No lymphadenopathy. CARDIOVASCULAR: Regular rate and rhythm. No murmurs, rubs, or gallops. Distal pulses are 2+ and symmetric. PULMONARY: No evidence of respiratory distress. Lungs clear to auscultation bilaterally. No wheezing, rales or rhonchi. ABDOMINAL: Soft. Non-tender. Non-distended. No rebound or guarding. No organomegaly. Normoactive bowel sounds. MUSCULOSKELETAL Normal range of motion at all joints. No bony deformities or tenderness. No CVA tenderness. EXTREMITIES: No cyanosis. No clubbing. No edema. No calf tenderness. SKIN: Warm and dry. Normal capillary refill. No rashes. No jaundice. NEUROLOGICAL: Alert, awake, appropriate. Cranial nerves 2-12 intact. No deficits to light touch in face, upper extremities and lower extremities. No motor deficits in the in face, upper extremities and lower extremities. Normoreflexic in the upper and lower extremities. Normal speech. . Gait with mild ataxia. Negative arm drop. No facial asymmetry. Normal frowned and smile bilateral. PSYCHIATRIC: Cooperative. Good eye contact. Appropriate mood and affect. General Appearance: Yes: Nourished, Appropriately Dressed. No: Apparent Distress <Sekou Chamberlain - Last Filed: 11/15/19 22:55> - Vital Signs Last Vital Signs Temp Pulse Resp BP Pulse Ox 97.7 F 75 16 160/84 98 11/16/19 05:39 11/16/19 05:39 11/16/19 05:39 11/16/19 05:39 11/16/19 05:39 <Jam Solis - Last Filed: 11/16/19 07:17> ED Treatment Course - LABORATORY CBC & Chemistry Diagram: 11/15/19 19:48 11/15/19 19:48 - RADIOLOGY Radiology Studies Ordered: Category Date Time Status HEAD CT (STROKE) [CT] Stat CT Scan 11/15/19 18:40 Ordered <Sekou Chamberlain - Last Filed: 11/15/19 22:55> - LABORATORY CBC & Chemistry Diagram: 11/16/19 06:25 11/15/19 19:48 - Medications Given in the ED: ED Medications Discontinued Medications Generic Name Dose Route Start Last Admin Trade Name Kailey PRN Reason Stop Dose Admin Aspirin 162 mg 11/15/19 19:02 11/15/19 20:14 Asa - PO 11/15/19 19:03 162 mg ONCE ONE Administration <Jam Solis - Last Filed: 11/16/19 07:17> Medical Decision Making - Medical Decision Making 11/15/19 19:25 Patient with past medical history of hypertension hyperlipidemia presented with complaint of sudden onset of weakness to right side of her body from upper extremity and lower extremity and right side of face upon wake this morning. Denies nausea, vomiting, dizziness, blurry vision or change in vision. Denies history of stroke. Denies chest pain, shortness of breath. Patient required feeling of weakness in right leg. Denies any other symptoms. Patient has not taken anything for symptoms Clinical exam unremarkable except mild ataxia. Normal neuro exam. Normal sensory and motor exam to bilateral upper and lower extremities. 5 out of 5 strength to bilateral extremities. No facial drooling or paralysis. Normal sensory to face. Pupil equal reflective to light bilateral 11/15/19 19:[address] without contrast read by imaging on-call shows no infarct or acute intracranial hemorrhage. CT shows mild chronic microvascular ischemic changes. Spoke to neurologist Dr. Garza who agrees patient should be admitted for obs for TIA and do MRI of the brain without contrast with stroke protocol. Patient will be admitted for observation for any worsening symptoms for TIA 11/15/19 21:43 CBC and chemistry lab within normal limits. Cardiac profile normal. EKG shows sinus rhythm with right bundle branch block. Patient asymptomatic at this time. Spoke to medicine team resident Dr Marcelle Nye who agrees to admit patient to telemetry for observation under Dr. Blankenship. Patient boarded for admission <Sekou Chamberlain - Last Filed: 11/15/19 22:55> - Medical Decision Making The patient was seen and evaluated in conjunction with KAREEN Chamberlain under my direct supervision, ancillary studies were reviewed. We discussed the patients case in detail and I agree with the plan as outlined by KAREEN Chamberlain. <Jam Solis - Last Filed: 11/16/19 07:17> Discharge - Discharge Information Problems reviewed: Yes - Admission Yes <Sekou Chamberlain - Last Filed: 11/15/19 22:55> <Jam Solis - Last Filed: 11/16/19 07:17> - Discharge Information Clinical Impression/Diagnosis: Transient ischemic attack Condition: Stable
[2019-11-15] MEDS ORDERED: ASPIRIN 81 MG CHEWABLE TABLETS ONE (19:44)
[2019-11-15 20:13] LABS: BASO % 0.8 % (0-2.0); EOS % 5.3 % (0-4.5); HEMATOCRIT 38.8 % (32.4-45.2); HEMOGLOBIN 12.5 GM/dL (10.7-15.3); LYMPH % 34.8 % (8-40); MCH 25.9 pg (25.7-33.7); MCHC 32.3 g/dl (32.0-36.0); MEAN CELL VOLUME 80.4 fl (80-96); MEAN PLT VOLUME 10.1 fl (7.5-11.1); NEUT % 52.1 % (42.8-82.8); PLATELET COUNT 156 K/MM3 (134-434); RBC 4.83 M/mm3 (3.60-5.2); WHITE BLOOD COUNT 8.4 K/mm3 (4.0-10.0)
[2019-11-15 20:20] LABS: INR 0.98 (0.83-1.09); PROTHROMBIN TIME (PATIENT) 11.6 SEC (9.7-13.0)
[2019-11-15 20:23] LABS: ACTIVATED PTT 35.2 SECONDS (25.2-36.5)
[2019-11-15 20:45] LABS: CHOLESTEROL 306 mg/dL (50-200); HDL CHOLESTEROL 66 mg/dL (40-60); LDL CHOLESTEROL (ONLY SJRH) 213 mg/dL (5-100); TRIGLYCERIDES 173 mg/dL (0-150)
[2019-11-15 21:04] LABS: CALCIUM 9.7 mg/dL (8.5-10.1); CHLORIDE 107 mmol/L (98-107); CO2 26 mmol/L (21-32); CREATININE 1.2 mg/dL (0.55-1.3); GLUCOSE,RANDOM 86 mg/dL (74-106); POTASSIUM 4.1 mmol/L (3.5-5.1); SODIUM 140 mmol/L (136-145)
[2019-11-15 21:05] LABS: ALBUMIN 3.9 g/dl (3.4-5.0); SGOT/AST 18 U/L (15-37); SGPT/ALT 19 U/L (13-61)
[2019-11-15 21:08] LABS: ALK PHOS 74 U/L (45-117); ANION GAP 7 MMOL/L (8-16); TOT PROT 7.8 g/dl (6.4-8.2)
--- NOTE | 2019-11-15 21:36 | HP ---
CHIEF COMPLAINT: numbness, tingling, weakness PCP: HISTORY OF PRESENT ILLNESS: Patient is a 69 y/o female with a history of HTN and HLD who presents with numbness and tingling in the right arm and leg, feelings of weakness and dizziness. Patient denies ever having these symptoms before. She reports the symptoms began at 8 am and lasted for about three hours. She is supposed to be on rosuvastatin but does not take it daily because of the cramps. The numbness has resolved but the weakness has not. Patient denies any changes in vision, any blurry vision, headaches, nausea or vomiting. ER course was notable for: (1) (2) (3) Recent Travel: PAST MEDICAL HISTORY: HTN and HLD PAST SURGICAL HISTORY: bariatric surgery Social History: Smoking: never Alcohol: Drugs: Family history: mother positive for stroke Allergies Penicillins Allergy (Intermediate, Verified 11/15/19 16:16) amoxicillin [Amoxicillin] Allergy (Mild, Verified 11/15/19 16:16) HOME MEDICATIONS: Home Medications Medication Instructions Recorded Clonidine Patch [Catapres Tts 0.3 mg TD WEEKLY 04/18/19 Patch -] Omeprazole 20 mg PO DAILY 04/18/19 Citric Acid/Sodium Citrate 30 ml PO DAILY #150 ml 04/19/19 [Bicitra Oral Solution] Colchicine [Colcrys] 0.6 mg PO DAILY #30 cap 04/19/19 Prednisone See Taper PO DAILY #17 tablet 04/19/19 hydrALAZINE HCL [Apresoline -] 25 mg PO TID tablet 04/19/19 REVIEW OF SYSTEMS CONSTITUTIONAL: Absent: fever, chills, diaphoresis, generalized weakness, malaise, loss of appetite, weight change HEENT: Absent: rhinorrhea, nasal congestion, throat pain, throat swelling, difficulty swallowing, mouth swelling, ear pain, eye pain, visual changes CARDIOVASCULAR: Absent: chest pain, syncope, palpitations, irregular heart rate, lightheadedness, peripheral edema RESPIRATORY: Absent: cough, shortness of breath, dyspnea with exertion, orthopnea, wheezing, stridor, hemoptysis GASTROINTESTINAL: Absent: abdominal pain, abdominal distension, nausea, vomiting, diarrhea, constipation, melena, hematochezia GENITOURINARY: Absent: dysuria, frequency, urgency, hesitancy, hematuria, flank pain, genital pain MUSCULOSKELETAL: Absent: myalgia, arthralgia, joint swelling, back pain, neck pain SKIN: Absent: rash, itching, pallor HEMATOLOGIC/IMMUNOLOGIC: Absent: easy bleeding, easy bruising, lymphadenopathy, frequent infections ENDOCRINE: Absent: unexplained weight gain, unexplained weight loss, heat intolerance, cold intolerance NEUROLOGIC: focal weakness or paresthesias, dizziness, unsteady gait, Absent: headache, seizure, mental status changes, bladder or bowel incontinence PSYCHIATRIC: Absent: anxiety, depression, suicidal or homicidal ideation, hallucinations. PHYSICAL EXAMINATION Vital Signs - 24 hr 11/15/19 16:14 Temperature 97.9 F Pulse Rate 61 Respiratory 19 Rate Blood Pressure 125/71 O2 Sat by Pulse 99 Oximetry (%) GENERAL: Awake, alert, and fully oriented, in no acute distress. HEAD: Normal with no signs of trauma. EYES: Pupils equal, round and reactive to light, extraocular movements intact, EARS, NOSE, THROAT: Moist mucous membranes. NECK: Normal range of motion LUNGS: Breath sounds equal, clear to auscultation bilaterally. No wheezes, and no crackles. No accessory muscle use. HEART: Regular rate and rhythm, normal S1 and S2 without murmur, rub or gallop. ABDOMEN: Soft, nontender, not distended, normoactive bowel sounds, MUSCULOSKELETAL: Normal range of motion at all joints. LOWER EXTREMITIES: No peripheral edema. NEUROLOGICAL: Cranial nerves II-XII intact. Normal speech. normal sensation diffusely, muscle strength intact 5/5 diffusely, gait mildly ataxic, unable to perform roomberg due to dizziness SKIN: Warm, dry, normal turgor, no rashes or lesions noted, normal capillary refill. Laboratory Results - last 24 hr 11/15/19 11/15/19 11/15/19 19:48 19:48 19:48 WBC 8.4 RBC 4.83 Hgb 12.5 Hct 38.8 MCV 80.4 MCH 25.9 MCHC 32.3 RDW 15.0 D Plt Count 156 D MPV 10.1 Absolute Neuts (auto) 4.4 Neutrophils % 52.1 Lymphocytes % 34.8 Monocytes % 7.0 Eosinophils % 5.3 H Basophils % 0.8 Nucleated RBC % 0 PT with INR 11.60 INR 0.98 PTT (Actin FS) 35.2 Sodium Potassium Chloride Carbon Dioxide Anion Gap BUN Creatinine Est GFR (CKD-EPI)AfAm Est GFR (CKD-EPI)NonAf Random Glucose Calcium Total Bilirubin AST ALT Alkaline Phosphatase Creatine Kinase Troponin I Total Protein Albumin Triglycerides 173 H Cholesterol 306 H Total LDL Cholesterol 213 H HDL Cholesterol 66 H Blood Type Antibody Screen 11/15/19 11/15/19 19:48 19:48 WBC RBC Hgb Hct MCV MCH MCHC RDW Plt Count MPV Absolute Neuts (auto) Neutrophils % Lymphocytes % Monocytes % Eosinophils % Basophils % Nucleated RBC % PT with INR INR PTT (Actin FS) Sodium 140 Potassium 4.1 Chloride 107 Carbon Dioxide 26 Anion Gap 7 L BUN 25.0 H Creatinine 1.2 Est GFR (CKD-EPI)AfAm 54.16 Est GFR (CKD-EPI)NonAf 46.73 Random Glucose 86 Calcium 9.7 Total Bilirubin 1.0 AST 18 ALT 19 Alkaline Phosphatase 74 Creatine Kinase 77 Troponin I < 0.02 Total Protein 7.8 Albumin 3.9 Triglycerides Cholesterol Total LDL Cholesterol HDL Cholesterol Blood Type O POSITIVE Antibody Screen Negative ASSESSMENT/PLAN: Patient is a 69 y/o female with a history of HTN and HLD who is admitted for a stroke. #Stroke - MRI: diffusion restriction involving the left clement-shavon, concerning for acute infarct - ekg: RBB - head CT: possibly a cavernous hemangioma - Discussed case with Dr. Ruvalcaba, patient outside window for TPA, f/u brain and Neck CTA to f/u possible hemangioma, can hold off neruosurgery for now, f/u results of further imagin - loaded with ASA, and will continue ASA 81 mg - noncomplaint with past statin, started with atorvastatin 40 mg daily - will allow for permissive HTN and hold hypertensive meds - continual neuro checks - fall risk, bedside swallow passed #HTN: hold medications #DVT ppx: Lovenox Dispo: monitor on tele Family Medical History Family History: As Documented Visit type - Medication Review Med list reviewed for High Risk Meds patients 65 and older: Yes - Emergency Visit Emergency Visit: Yes ED Registration Date: 11/15/19 Care time: The patient presented to the Emergency Department on the above date and was hospitalized for further evaluation of their emergent condition. - New Patient This patient is new to me today: Yes Date on this admission: 11/16/19 - Critical Care Critical Care patient: No ATTENDING PHYSICIAN STATEMENT I saw and evaluated the patient. I reviewed the resident's note and discussed the case with the resident. I agree with the resident's findings and plan as documented. SUBJECTIVE: OBJECTIVE: ASSESSMENT AND PLAN:
[2019-11-15 21:37] LABS: EPI CELLS 6 /uL (0-25.1); HYALINE CASTS 0 /uL (0-3.1); URINE APPEARANCE CLEAR; URINE BACTERIA 15 /uL (0-1359); URINE BILIRUBIN NEGATIVE (NEGATIVE); URINE COLOR YELLOW; URINE GLUCOSE (UA) NEGATIVE (NEGATIVE); URINE KETONE NEGATIVE (NEGATIVE); URINE LEUK ESTERASE NEGATIVE (NEGATIVE); URINE NITRITE NEGATIVE (NEGATIVE); URINE PROTEIN 1+ (NEGATIVE); URINE RBC 20 /uL (0-23.9); URINE UROBILINOGEN 0.2 mg/dL (0.2-1.0); URINE WBC 13 /uL (0-25.8)
--- NOTE | 2019-11-15 21:39 | PN ---
Teaching Attending Note Name of Resident: Marcelle Nye ATTENDING PHYSICIAN STATEMENT I saw and evaluated the patient. I reviewed the resident's note and discussed the case with the resident. I agree with the resident's findings and plan as documented. SUBJECTIVE: Patient is a 69 year old woman with a PMH of Penicillin allergy, Hypertension, H yperlipidemia, Gout, GERD, Sleeve gastrectomy (2016) and x2 who presents with complaint of sudden onset of weakness to right side of her body from upper extremity and lower extremity and right side of face upon wake this morning. Denies nausea, vomiting, dizziness, blurry vision or change in vision. Denies history of stroke. Denies chest pain, shortness of breath. Patient has not taken anything for her symptoms. Patient denies fever, chills, diarrhea, constipation, dysuria, frequency, urgency, melena, hematochezia or hematuria. Denies alcohol, tobacco or illicit drug use. No sick contacts or recent travels. Family history is unremarkable. OBJECTIVE: Alert Vital Signs Period Temp Pulse Resp BP Sys/Bruno Pulse Ox Last 24 Hr 97.9 F 61 19 125/71 99 HEENT: No Jaundice, eye redness or discharge, PERRLA, EOMI. Normocephalic, atraumatic. External ears are normal and hearing is grossly intact. No nasal discharge. Neck: Supple, nontender. No palpable adenopathy or thyromegaly. No JVD Chest: Good effort. Clear to auscultation and percussion. Heart: Regular. No S3, rub or murmur Abdomen: Not distended, soft, nontender and no HSM. No rebound or guarding. Normal bowel sounds. Ext: Peripheral pulses intact. No leg edema. Skin: Warm and dry. No petechiae, rash or ecchymosis. Neuro: Alert. Oriented x3. CN 2-12 grossly intact. Sensation grossly intact in all four extremities and DTR are symmetric. Unsteady gait. Psych: Appropriate mood and affect. Good insight. Home Medications Medication Instructions Recorded Clonidine Patch [Catapres Tts 0.3 mg TD WEEKLY 04/18/19 Patch -] Omeprazole 20 mg PO DAILY 04/18/19 Citric Acid/Sodium Citrate 30 ml PO DAILY #150 ml 04/19/19 [Bicitra Oral Solution] Colchicine [Colcrys] 0.6 mg PO DAILY #30 cap 04/19/19 Prednisone See Taper PO DAILY #17 tablet 04/19/19 hydrALAZINE HCL [Apresoline -] 25 mg PO TID tablet 04/19/19 Abnormal Lab Results 11/15/19 11/15/19 11/15/19 19:48 19:48 19:48 Eosinophils % 5.3 H Anion Gap 7 L BUN 25.0 H Triglycerides 173 H Cholesterol 306 H Total LDL Cholesterol 213 H HDL Cholesterol 66 H Urine Protein 11/15/19 21:00 Eosinophils % Anion Gap BUN Triglycerides Cholesterol Total LDL Cholesterol HDL Cholesterol Urine Protein 1+ H Current Medications Generic Name Dose Route Start Last Admin Trade Name Freq PRN Reason Stop Dose Admin Aspirin 81 mg 11/16/19 10:00 Asa - PO DAILY DEB Atorvastatin Calcium 40 mg 11/15/19 22:00 Lipitor - PO HS DEB Enoxaparin Sodium 40 mg 11/16/19 10:00 Lovenox - SQ DAILY [facility] Sodium Chloride 1,000 mls @ 42 mls/hr 11/15/19 19:15 Normal Saline - IV ASDIR [facility] ASSESSMENT AND PLAN: 1. Transient ischemic attack - ER staff consulted Neurology. Not a candidate for tPA - outside the window. 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 Will consult Nuerosurgery. Got Aspirin 162 mg in the ER. MRI of brain shows possible left hemipons acute infarction. EKG shows sinus bradycardia at 55/minute, RBBB and QTc [address]-T wave changes. Initial troponin is negative. Will admit to telemetry, trend troponin, repeat EKG, get ECHO, TSH, carotid doppler, do speech and swallow evaluation, neurochecks and implement fall/aspiration/seizure precautions. Will treat with Lipitor and Aspirin. Consult PT/Neurology. Viral testing for COVID-19 ordered and patient placed on airborne, droplet and contact isolation. Will continue comprehensive care for all of patients comorbid conditions. 2. Hypertension Will practice permissive hypertension for 24-48 hours. Restart suitable outpatient antihypertensive drugs when clinically appropriate. Subsequently, will revise regimen to ensure [id number] excellent BP control. Patient counseled on the injurious effects of uncontrolled hypertension. Nonpharmacologic measures to control hypertension like weight loss, salt restriction and exercise stressed. Importance of adherence to treatment regimen and attainment of normotension emphasized. 3. DVT prophylaxis - Lovenox 40 mg SQ q 24 hours. 4. Advance directives - Full code
[2019-11-15] MEDS ORDERED: HEPARIN NA (PORCINE) 5,000 UNITS/ML 1ML VIAL SQ SCH (22:00)
[2019-11-16] MEDS: SODIUM CHLORIDE 1,000 ML IV SCH ×2 (01:51→21:49)
[2019-11-16] MEDS ORDERED: ATORVASTATIN CA 40 MG TABLET (FP) ONE (02:37)
[2019-11-16] MEDS: ATORVASTATIN CA 40 MG TABLET (FP) PO SCH ×2 (02:43→21:49)
[2019-11-16 06:55] LABS: BASO % 0.5 % (0-2.0); EOS % 7.8 % (0-4.5); HEMATOCRIT 37.7 % (32.4-45.2); HEMOGLOBIN 12.1 GM/dL (10.7-15.3); LYMPH % 38.7 % (8-40); MCH 25.7 pg (25.7-33.7); MEAN CELL VOLUME 80.1 fl (80-96); MEAN PLT VOLUME 9.6 fl (7.5-11.1); MONO % 7.3 % (3.8-10.2); NEUT % 45.7 % (42.8-82.8); PLATELET COUNT 148 K/MM3 (134-434); RDW 15.4 % (11.6-15.6); WHITE BLOOD COUNT 6.7 K/mm3 (4.0-10.0)
[2019-11-16 07:42] LABS: ALBUMIN 3.6 g/dl (3.4-5.0); BLOOD UREA NITROGEN 23.9 mg/dL (7-18); CALCIUM 9.4 mg/dL (8.5-10.1); CREATININE 1.2 mg/dL (0.55-1.3); MAGNESIUM 1.8 mg/dL (1.8-2.4); PHOSPHOROUS 4.3 mg/dL (2.5-4.9); POTASSIUM 4.8 mmol/L (3.5-5.1); TOT PROT 7.3 g/dl (6.4-8.2)
--- NOTE | 2019-11-16 07:50 | PN ---
Progress Note, Physician History of Present Illness: Patient is a 69 y/o female with a history of HTN and HLD who is admitted for a stroke. - Current Medication List Current Medications: Active Medications Aspirin (Asa -) 81 mg PO DAILY [facility] Atorvastatin Calcium (Lipitor -) 40 mg PO HS [facility] Last Admin: 11/16/19 02:43 Dose: 40 mg Documented by: Enoxaparin Sodium (Lovenox -) 40 mg SQ DAILY [facility] Sodium Chloride (Normal Saline -) 1,000 mls @ 42 mls/hr IV ASDIR [facility] Last Admin: 11/16/19 01:51 Dose: 42 mls/hr Documented by: - Objective Vital Signs: Vital Signs Temperature 97.7 F 11/16/19 05:39 Pulse Rate 75 11/16/19 05:39 Respiratory Rate 16 11/16/19 05:39 Blood Pressure 160/84 11/16/19 05:39 O2 Sat by Pulse Oximetry (%) 98 11/16/19 05:39 Labs: CBC, BMP 11/16/19 06:25 11/16/19 06:25 INR, PTT INR 0.98 (0.83-1.09) 11/15/19 19:48 - ....Imaging MRI: Report Reviewed (diffusion restriction involving the left clement-shavon, concerning for acute infarct - head CT: possibly a cavernous hemangioma) EKG: Report Reviewed (ekg: RBB) Problem List - Problems (1) HTN (hypertension) Code(s): I10 - ESSENTIAL (PRIMARY) HYPERTENSION (2) HLD (hyperlipidemia) Code(s): E78.5 - HYPERLIPIDEMIA, UNSPECIFIED (3) CVA (cerebral vascular accident) Code(s): I63.9 - CEREBRAL INFARCTION, UNSPECIFIED (4) Prophylactic measure Code(s): Z29.9 - ENCOUNTER FOR PROPHYLACTIC MEASURES, UNSPECIFIED (5) Suspected COVID-19 virus infection Code(s): Z20.828 - CONTACT W AND EXPOSURE TO OTH VIRAL COMMUNICABLE DISEASES
[2019-11-16] MEDS ORDERED: ASPIRIN 81 MG CHEWABLE TABLETS ONE (09:57)
[2019-11-16] MEDS ORDERED: ENOXAPARIN NA (PORCINE) 40 MG/0.4 ML DISP.SYRIN SQ ONE (09:57)
[2019-11-16] MEDS: ENOXAPARIN NA (PORCINE) 40 MG/0.4 ML DISP.SYRIN SQ SCH ×2 (10:00→21:49)
[2019-11-16] MEDS: ASPIRIN 81 MG CHEWABLE TABLETS PO SCH (10:00)
--- NOTE | 2019-11-16 11:21 | CONSULT ---
Consult - text type - Consultation Consultation Note: Neurology CHIEF COMPLAINT: numbness, tingling, weakness HISTORY OF PRESENT ILLNESS: Patient is a 69 y/o female with a history of HTN and HLD who presents with numbness and tingling in the right arm and leg, feelings of weakness and dizziness. Patient denies ever having these symptoms before. She reported the symptoms began at 8 am on day of admission and lasted for about three hours. She is supposed to be on rosuvastatin but does not take it daily because of the cramps. The numbness has resolved but the weakness has not. Patient denies any changes in vision, any blurry vision, headaches, nausea or vomiting. Head CT completed, with no evidence acute infarct. 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 Discussed results with resident overnight. Head and Neck CTA completed, results pending. triglycerides - 173, cholesterol - 306, total LDL - 213, HDL - 66. Patient started on aspirin 81mg and lipitor but reports she was not taking ASA prior to admission and was only taking statin sporadically because of cramping. Recommended daily use of both due to her risk factors and new CVA noted. Explained results in detail with patient. Recent Travel: PAST MEDICAL HISTORY: HTN and HLD PAST SURGICAL HISTORY: bariatric surgery Social History: Smoking: never Alcohol: Drugs: Family History: mother positive for stroke Allergies Penicillins Allergy (Intermediate, Verified 11/15/19 16:16) amoxicillin [Amoxicillin] Allergy (Mild, Verified 11/15/19 16:16) HOME MEDICATIONS: Omeprazole 20 mg PO DAILY 04/18/19 Amlodipine Besylate/Benazepril [Amlodipine-Benazepril 5-20 mg] 1 each PO DAILY 11/15/19 Active Medications Aspirin (Asa -) 81 mg PO DAILY [facility] Last Admin: 11/16/19 10:00 Dose: 81 mg Documented by: Atorvastatin Calcium (Lipitor -) 40 mg PO HS [facility] Last Admin: 11/16/19 02:43 Dose: 40 mg Documented by: Enoxaparin Sodium (Lovenox -) 40 mg SQ DAILY [facility] Last Admin: 11/16/19 10:00 Dose: Not Given Documented by: Sodium Chloride (Normal Saline -) 1,000 mls @ 42 mls/hr IV ASDIR [facility] Last Admin: 11/16/19 01:51 Dose: 42 mls/hr Documented by: REVIEW OF SYSTEMS CONSTITUTIONAL: Absent: fever, chills, diaphoresis, generalized weakness, malaise, loss of appetite, weight change HEENT: Absent: rhinorrhea, nasal congestion, throat pain, throat swelling, difficulty swallowing, mouth swelling, ear pain, eye pain, visual changes CARDIOVASCULAR: Absent: chest pain, syncope, palpitations, irregular heart rate, lightheadedness, peripheral edema RESPIRATORY: Absent: cough, shortness of breath, dyspnea with exertion, orthopnea, wheezing, stridor, hemoptysis GASTROINTESTINAL: Absent: abdominal pain, abdominal distension, nausea, vomiting, diarrhea, constipation, melena, hematochezia GENITOURINARY: Absent: dysuria, frequency, urgency, hesitancy, hematuria, flank pain, genital pain MUSCULOSKELETAL: Absent: myalgia, arthralgia, joint swelling, back pain, neck pain SKIN: Absent: rash, itching, pallor HEMATOLOGIC/IMMUNOLOGIC: Absent: easy bleeding, easy bruising, lymphadenopathy, frequent infections ENDOCRINE: Absent: unexplained weight gain, unexplained weight loss, heat intolerance, cold intolerance NEUROLOGIC: focal weakness or paresthesias, dizziness, unsteady gait, Absent: headache, seizure, mental status changes, bladder or bowel incontinence PSYCHIATRIC: Absent: anxiety, depression, suicidal or homicidal ideation, hallucinations. PHYSICAL EXAMINATION Vital Signs Period Temp Pulse Resp BP Sys/Bruno Pulse Ox Last 24 Hr 97.1 F-97.9 F 56-75 16-19 125-160/71-84 98-100 GENERAL: Awake, alert, and fully oriented, in no acute distress. HEAD: Normal with no signs of trauma. EYES: Pupils equal, round and reactive to light, extraocular movements intact, EARS, NOSE, THROAT: Moist mucous membranes. NECK: Normal range of motion LUNGS: Breath sounds equal, clear to auscultation bilaterally. No wheezes, and no crackles. No accessory muscle use. HEART: Regular rate and rhythm, normal S1 and S2 without murmur, rub or gallop. ABDOMEN: Soft, nontender, not distended, normoactive bowel sounds, MUSCULOSKELETAL: Normal range of motion at all joints. LOWER EXTREMITIES: No peripheral edema. NEUROLOGICAL: Cranial nerves II-XII intact. Normal speech. normal sensation diffusely, LUE 5-/5, LLE 5-/5, gait antlagic and favoring the right SKIN: Warm, dry, normal turgor, no rashes or lesions noted, normal capillary refill. CBCD WBC 6.7 K/mm3 (4.0-10.0) 11/16/19 06:25 RBC 4.70 M/mm3 (3.60-5.2) 11/16/19 06:25 Hgb 12.1 GM/dL (10.7-15.3) 11/16/19 06:25 Hct 37.7 % (32.4-45.2) 11/16/19 06:25 MCV 80.1 fl (80-96) 11/16/19 06:25 MCHC 32.0 g/dl (32.0-36.0) 11/16/19 06:25 RDW 15.4 % (11.6-15.6) 11/16/19 06:25 Plt Count 148 K/MM3 (134-434) 11/16/19 06:25 MPV 9.6 fl (7.5-11.1) 11/16/19 06:25 CMP Sodium 139 mmol/L (136-145) 11/16/19 06:25 Potassium 4.8 mmol/L (3.5-5.1) 11/16/19 06:25 Chloride 105 mmol/L (98-107) 11/16/19 06:25 Carbon Dioxide 29 mmol/L (21-32) 11/16/19 06:25 Anion Gap 5 MMOL/L (8-16) L 11/16/19 06:25 BUN 23.9 mg/dL (7-18) H 11/16/19 06:25 Creatinine 1.2 mg/dL (0.55-1.3) 11/16/19 06:25 Random Glucose 105 mg/dL (74-106) 11/16/19 06:25 Calcium 9.4 mg/dL (8.5-10.1) 11/16/19 06:25 Total Bilirubin 1.0 mg/dL (0.2-1) 11/16/19 06:25 AST 16 U/L (15-37) 11/16/19 06:25 ALT 18 U/L (13-61) 11/16/19 06:25 Alkaline Phosphatase 69 U/L (45-117) 11/16/19 06:25 Total Protein 7.3 g/dl (6.4-8.2) 11/16/19 06:25 Albumin 3.6 g/dl (3.4-5.0) 11/16/19 06:25 CARDIAC ENZYMES Creatine Kinase 77 U/L (26-192) 11/15/19 19:48 Troponin I < 0.02 ng/ml (0.00-0.05) 11/15/19 19:48 ASSESSMENT/PLAN: Patient is a 69 y/o female with a history of HTN and HLD who presents with numbness and tingling in the right arm and leg, feelings of weakness and dizziness. Patient denies ever having these symptoms before. She reported the symptoms began at 8 am on day of admission and lasted for about three hours. She is supposed to be on rosuvastatin but does not take it daily because of the cramps. The numbness has resolved but the weakness has not. Patient denies any changes in vision, any blurry vision, headaches, nausea or vomiting. Head CT completed, with no evidence acute infarct. 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 Head and Neck CTA completed, results pending. triglycerides - 173, cholesterol - 306, total LDL - 213, HDL - 66. Patient started on aspirin 81mg and lipitor but reports she was not taking ASA prior to admission and was only taking statin sporadically because of cramping. Recommended daily use of both due to her risk factors and new CVA noted. Explained results in detail with patient. Follow up CTA head and neck, complete stroke work up. Medication compliance will be important for secondary prevention. Monitor bp, maintain < 180/90for now, <160/90 overnight. Physical therapy as tolerated. May benefit from short term rehab. Fall precautions.
--- NOTE | 2019-11-16 11:59 | EKG ---
Test Reason : Blood Pressure : / mmHG Vent. Rate : 055 BPM Atrial Rate : 055 BPM P-R Int : 120 ms QRS Dur : 120 ms QT Int : 466 ms P-R-T Axes : -16 036 051 degrees QTc Int : 445 ms SINUS BRADYCARDIA RIGHT BUNDLE BRANCH BLOCK ABNORMAL ECG WHEN COMPARED WITH ECG OF 10-MAY-2019 21:59, CRITERIA FOR INFERIOR INFARCT ARE NO LONGER PRESENT NONSPECIFIC T WAVE ABNORMALITY NO LONGER EVIDENT IN INFERIOR LEADS Confirmed by SILAS GALVIN MD ([id number]) on 11/16/2019 11:59:00 AM Referred By: Confirmed By:SILAS GALVIN MD
--- NOTE | 2019-11-16 13:44 | PN ---
Physical Exam: SUBJECTIVE: Patient seen and examined OBJECTIVE: Vital Signs Period Temp Pulse Resp BP Sys/Bruno Pulse Ox Last 24 Hr 97.1 F-97.9 F 56-75 16-19 125-160/71-84 98-100 GENERAL: The patient is awake, alert, and fully oriented, in no acute distress. HEAD: Normal with no signs of trauma. EYES: PERRL, extraocular movements intact, sclera anicteric, conjunctiva clear. No ptosis. ENT: Ears normal, nares patent, oropharynx clear without exudates, moist mucous membranes. NECK: Trachea midline, full range of motion, supple. LUNGS: Breath sounds equal, clear to auscultation bilaterally, no wheezes, no crackles, no accessory muscle use. HEART: Regular rate and rhythm, S1, S2 without murmur, rub or gallop. ABDOMEN: Soft, nontender, nondistended, normoactive bowel sounds, no guarding, no rebound, no hepatosplenomegaly, no masses. EXTREMITIES: 2+ pulses, warm, well-perfused, no edema. NEUROLOGICAL: Cranial nerves II through XII grossly intact. Normal speech, gait not observed. PSYCH: Normal mood, normal affect. SKIN: Warm, dry, normal turgor, no rashes or lesions noted Laboratory Results - last 24 hr 11/15/19 11/15/19 11/15/19 19:48 19:48 19:48 WBC 8.4 RBC 4.83 Hgb 12.5 Hct 38.8 MCV 80.4 MCH 25.9 MCHC 32.3 RDW 15.0 D Plt Count 156 D MPV 10.1 Absolute Neuts (auto) 4.4 Neutrophils % 52.1 Lymphocytes % 34.8 Monocytes % 7.0 Eosinophils % 5.3 H Basophils % 0.8 Nucleated RBC % 0 PT with INR 11.60 INR 0.98 PTT (Actin FS) 35.2 Sodium Potassium Chloride Carbon Dioxide Anion Gap BUN Creatinine Est GFR (CKD-EPI)AfAm Est GFR (CKD-EPI)NonAf Random Glucose Calcium Phosphorus Magnesium Total Bilirubin AST ALT Alkaline Phosphatase Creatine Kinase Troponin I Total Protein Albumin Triglycerides 173 H Cholesterol 306 H Total LDL Cholesterol 213 H HDL Cholesterol 66 H Urine Color Urine Appearance Urine pH Ur Specific [place] Urine Protein Urine Glucose (UA) Urine Ketones Urine Blood Urine Nitrite Urine Bilirubin Urine Urobilinogen Ur Leukocyte Esterase Urine WBC (Auto) Urine RBC (Auto) Urine Casts (Auto) U Epithel Cells (Auto) Urine Bacteria (Auto) Blood Type Antibody Screen 11/15/19 11/15/19 11/15/19 19:48 19:48 21:00 WBC RBC Hgb Hct MCV MCH MCHC RDW Plt Count MPV Absolute Neuts (auto) Neutrophils % Lymphocytes % Monocytes % Eosinophils % Basophils % Nucleated RBC % PT with INR INR PTT (Actin FS) Sodium 140 Potassium 4.1 Chloride 107 Carbon Dioxide 26 Anion Gap 7 L BUN 25.0 H Creatinine 1.2 Est GFR (CKD-EPI)AfAm 54.16 Est GFR (CKD-EPI)NonAf 46.73 Random Glucose 86 Calcium 9.7 Phosphorus Magnesium Total Bilirubin 1.0 AST 18 ALT 19 Alkaline Phosphatase 74 Creatine Kinase 77 Troponin I < 0.02 Total Protein 7.8 Albumin 3.9 Triglycerides Cholesterol Total LDL Cholesterol HDL Cholesterol Urine Color Yellow Urine Appearance Clear Urine pH 5.0 Ur Specific [place] 1.016 Urine Protein 1+ H Urine Glucose (UA) Negative Urine Ketones Negative Urine Blood Trace Urine Nitrite Negative Urine Bilirubin Negative Urine Urobilinogen 0.2 Ur Leukocyte Esterase Negative Urine WBC (Auto) 13 Urine RBC (Auto) 20 Urine Casts (Auto) 0 U Epithel Cells (Auto) 6 Urine Bacteria (Auto) 15 Blood Type O POSITIVE Antibody Screen Negative 11/16/19 11/16/19 06:25 06:25 WBC 6.7 RBC 4.70 Hgb 12.1 Hct 37.7 MCV 80.1 MCH 25.7 MCHC 32.0 RDW 15.4 Plt Count 148 MPV 9.6 Absolute Neuts (auto) 3.1 Neutrophils % 45.7 Lymphocytes % 38.7 Monocytes % 7.3 Eosinophils % 7.8 H Basophils % 0.5 Nucleated RBC % 0 PT with INR INR PTT (Actin FS) Sodium 139 Potassium 4.8 Chloride 105 Carbon Dioxide 29 Anion Gap 5 L BUN 23.9 H Creatinine 1.2 Est GFR (CKD-EPI)AfAm 54.16 Est GFR (CKD-EPI)NonAf 46.73 Random Glucose 105 Calcium 9.4 Phosphorus 4.3 Magnesium 1.8 Total Bilirubin 1.0 AST 16 ALT 18 Alkaline Phosphatase 69 Creatine Kinase Troponin I Total Protein 7.3 Albumin 3.6 Triglycerides Cholesterol Total LDL Cholesterol HDL Cholesterol Urine Color Urine Appearance Urine pH Ur Specific [place] Urine Protein Urine Glucose (UA) Urine Ketones Urine Blood Urine Nitrite Urine Bilirubin Urine Urobilinogen Ur Leukocyte Esterase Urine WBC (Auto) Urine RBC (Auto) Urine Casts (Auto) U Epithel Cells (Auto) Urine Bacteria (Auto) Blood Type Antibody Screen Active Medications Generic Name Dose Route Start Last Admin Trade Name Shekharq PRN Reason Stop Dose Admin Aspirin 81 mg 11/16/19 10:00 11/16/19 10:00 Asa - PO 81 mg DAILY DEB Administration Atorvastatin Calcium 40 mg 11/15/19 22:00 11/16/19 02:43 Lipitor - PO 40 mg HS DEB Administration Enoxaparin Sodium 40 mg 11/16/19 10:00 11/16/19 10:00 Lovenox - SQ Not Given DAILY DEB Sodium Chloride 1,000 mls @ 42 mls/hr 11/15/19 19:15 11/16/19 01:51 Normal Saline - IV 42 mls/hr ASDIR DEB Administration ASSESSMENT/PLAN: - Problems # CVA (cerebral vascular accident) -neuro following -c/w asa, statin -PT eval -speech/swallow eval -CTA head/neck pending reports -Brain MRI -acute nonhemorrhagic infarct left aspect of the shavon; indications of 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 Code(s): I63.9 - CEREBRAL INFARCTION, UNSPECIFIED # HTN (hypertension) - Monitor bp, maintain < 180/90for now, <160/90 overnight- as per neuro recommendations Code(s): I10 - ESSENTIAL (PRIMARY) HYPERTENSION # HLD (hyperlipidemia) -c/w lipitor Code(s): E78.5 - HYPERLIPIDEMIA, UNSPECIFIED # Prophylactic measure -c/w Lovenox Code(s): Z29.9 - ENCOUNTER FOR PROPHYLACTIC MEASURES, UNSPECIFIED # Suspected COVID-19 virus infection -awaiting result -airborne/droplet isolation Code(s): Z20.828 - CONTACT W AND EXPOSURE TO OTH VIRAL COMMUNICABLE DISEASES Visit type - Emergency Visit Emergency Visit: Yes ED Registration Date: 11/15/19 Care time: The patient presented to the Emergency Department on the above date and was hospitalized for further evaluation of their emergent condition. - New Patient This patient is new to me today: Yes Date on this admission: 11/16/19 - Critical Care Critical Care patient: No - Discharge Referral Referred to [facility] Med P.C.: No - Medication Review Med list reviewed for High Risk Meds patients 65 and older: No
[2019-11-16 17:38] VITALS: BMI 25.6
[2019-11-16] MEDS ORDERED: ACETAMINOPHEN 325 MG TABLET (FP) PO PRN (22:12)
[2019-11-16] MEDS ORDERED: amLODIPine BESYLATE 2.5 MG TABLET (FP) PO ONE (22:13)
[2019-11-17 07:39] LABS: BASO % 1.1 % (0-2.0); EOS % 5.1 % (0-4.5); HEMATOCRIT 35.9 % (32.4-45.2); HEMOGLOBIN 11.7 GM/dL (10.7-15.3); MCH 25.8 pg (25.7-33.7); MCHC 32.6 g/dl (32.0-36.0); MEAN CELL VOLUME 79.1 fl (80-96); MEAN PLT VOLUME 10.8 fl (7.5-11.1); MONO % 7.4 % (3.8-10.2); NEUT % 46.4 % (42.8-82.8); PLATELET COUNT 141 K/MM3 (134-434); RBC 4.53 M/mm3 (3.60-5.2); RDW 14.9 % (11.6-15.6); WHITE BLOOD COUNT 6.9 K/mm3 (4.0-10.0)
[2019-11-17 08:14] LABS: ALBUMIN 3.3 g/dl (3.4-5.0); BILIRUBIN,TOTAL 0.9 mg/dL (0.2-1); BLOOD UREA NITROGEN 24.7 mg/dL (7-18); CALCIUM 9.2 mg/dL (8.5-10.1); CREATININE 1.2 mg/dL (0.55-1.3); MAGNESIUM 1.8 mg/dL (1.8-2.4); POTASSIUM 4.1 mmol/L (3.5-5.1); TOT PROT 6.6 g/dl (6.4-8.2)
--- NOTE | 2019-11-17 08:36 | PN ---
Progress Note (short form) - Note Progress Note: Neurology CHIEF COMPLAINT: numbness, tingling, weakness HISTORY OF PRESENT ILLNESS: Patient is a 69 y/o female with a history of HTN and HLD who presents with numbness and tingling in the right arm and leg, feelings of weakness and dizziness. Patient denies ever having these symptoms before. She reported the symptoms began at 8 am on day of admission and lasted for about three hours. She is supposed to be on rosuvastatin but does not take it daily because of the cramps. The numbness has resolved but the weakness has not. Patient denies any changes in vision, any blurry vision, headaches, nausea or vomiting. Head CT completed, with no evidence acute infarct. 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 Discussed results with resident overnight. Head and Neck CTA completed, results pending. triglycerides - 173, cholesterol - 306, total LDL - 213, HDL - 66. Patient started on aspirin 81mg and lipitor but reports she was not taking ASA prior to admission and was only taking statin sporadically because of cramping. Recommended daily use of both due to her risk factors and new CVA noted. Explained results in detail with patient. Sister on phone today and discussed wit kadie as well. Active Medications Aspirin (Asa -) 81 mg PO DAILY [facility] Last Admin: 11/16/19 10:00 Dose: 81 mg Documented by: Atorvastatin Calcium (Lipitor -) 40 mg PO [facility] Last Admin: 11/16/19 21:49 Dose: 40 mg Documented by: Enoxaparin Sodium (Lovenox -) 40 mg SQ DAILY [facility] Last Admin: 11/16/19 21:49 Dose: 40 mg Documented by: Sodium Chloride (Normal Saline -) 1,000 mls @ 42 mls/hr IV ASDIR [facility] Last Admin: 11/16/19 21:49 Dose: 42 mls/hr Documented by: PHYSICAL EXAMINATION Vital Signs Period Temp Pulse Resp BP Sys/Bruno Pulse Ox Last 24 Hr 97.5 F-97.9 F 53-76 16-20 140-173/78-86 97-99 GENERAL: Awake, alert, and fully oriented, in no acute distress. HEAD: Normal with no signs of trauma. EYES: Pupils equal, round and reactive to light, extraocular movements intact, EARS, NOSE, THROAT: Moist mucous membranes. NECK: Normal range of motion LUNGS: Breath sounds equal, clear to auscultation bilaterally. No wheezes, and no crackles. No accessory muscle use. HEART: Regular rate and rhythm, normal S1 and S2 without murmur, rub or gallop. ABDOMEN: Soft, nontender, not distended, normoactive bowel sounds, MUSCULOSKELETAL: Normal range of motion at all joints. LOWER EXTREMITIES: No peripheral edema. NEUROLOGICAL: Cranial nerves II-XII intact. Normal speech. normal sensation diffusely, LUE 5-/5, LLE 5-/5, gait antlagic and favoring the right SKIN: Warm, dry, normal turgor, no rashes or lesions noted, normal capillary refill. CBCD WBC 6.9 K/mm3 (4.0-10.0) 11/17/19 06:14 RBC 4.53 M/mm3 (3.60-5.2) 11/17/19 06:14 Hgb 11.7 GM/dL (10.7-15.3) 11/17/19 06:14 Hct 35.9 % (32.4-45.2) 11/17/19 06:14 MCV 79.1 fl (80-96) L 11/17/19 06:14 MCHC 32.6 g/dl (32.0-36.0) 11/17/19 06:14 RDW 14.9 % (11.6-15.6) 11/17/19 06:14 Plt Count 141 K/MM3 (134-434) 11/17/19 06:14 MPV 10.8 fl (7.5-11.1) D 11/17/19 06:14 CMP Sodium 141 mmol/L (136-145) 11/17/19 06:14 Potassium 4.1 mmol/L (3.5-5.1) 11/17/19 06:14 Chloride 107 mmol/L (98-107) 11/17/19 06:14 Carbon Dioxide 27 mmol/L (21-32) 11/17/19 06:14 Anion Gap 6 MMOL/L (8-16) L 11/17/19 06:14 BUN 24.7 mg/dL (7-18) H 11/17/19 06:14 Creatinine 1.2 mg/dL (0.55-1.3) 11/17/19 06:14 Random Glucose 92 mg/dL (74-106) 11/17/19 06:14 Calcium 9.2 mg/dL (8.5-10.1) 11/17/19 06:14 Total Bilirubin 0.9 mg/dL (0.2-1) 11/17/19 06:14 AST 16 U/L (15-37) 11/17/19 06:14 ALT 18 U/L (13-61) 11/17/19 06:14 Alkaline Phosphatase 62 U/L (45-117) 11/17/19 06:14 Total Protein 6.6 g/dl (6.4-8.2) 11/17/19 06:14 Albumin 3.3 g/dl (3.4-5.0) L 11/17/19 06:14 CARDIAC ENZYMES Creatine Kinase 77 U/L (26-192) 11/15/19 19:48 Troponin I < 0.02 ng/ml (0.00-0.05) 11/15/19 19:48 ASSESSMENT/PLAN: Patient is a 69 y/o female with a history of HTN and HLD who presents with numbness and tingling in the right arm and leg, feelings of weakness and dizziness. Patient denies ever having these symptoms before. She reported the symptoms began at 8 am on day of admission and lasted for about three hours. She is supposed to be on rosuvastatin but does not take it daily because of the cramps. The numbness has resolved but the weakness has not. Patient denies any changes in vision, any blurry vision, headaches, nausea or vomiting. Head CT completed, with no evidence acute infarct. 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 Head and Neck CTA completed, results pending. triglycerides - 173, cholesterol - 306, total LDL - 213, HDL - 66. Patient started on aspirin 81mg and lipitor but reports she was not taking ASA prior to admission and was only taking statin sporadically because of cramping. Recommended daily use of both due to her risk factors and new CVA noted. Explained results in detail with patient. Follow up CTA head and neck, complete stroke work up. Medication compliance will be important for secondary prevention. Monitor bp, maintain < 160/90for now, <140/90 as outpatient. Physical therapy as tolerated. May benefit from short term rehab vs home PT. Fall precautions. Follow up CTA head and neck results.
[2019-11-17] MEDS: ENOXAPARIN NA (PORCINE) 40 MG/0.4 ML DISP.SYRIN SQ SCH (09:43)
[2019-11-17] MEDS: ASPIRIN 81 MG CHEWABLE TABLETS PO SCH (09:43)
[2019-11-17] MEDS ORDERED: LISINOPRIL 5 MG TABLET (FP) PO SCH (10:00)
--- NOTE | 2019-11-17 10:22 | CONSULT ---
Admitting History and Physical - Admission History of Present Illness: 69 y/o female with a history of HTN and HLD who presents with numbness and tingling in the right arm and leg, feelings of weakness and dizziness. Head CT completed, with no evidence acute infarct. 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 Passed Dysaphagia screen and reg diet/thin liquid initiated. Slight Rt facial droop noted with Rt arm and leg weakness and Rt arm drift noted Selected Entries 11/16/19 11/16/19 11/17/19 16:10 18:43 02:00 Diet Tolerated Well Eating (Feeding Independent ) Ability Supper 100% Temperature 97.8 F Pulse Rate 58 L Blood Pressure 140/81 11/17/19 11/17/19 06:00 09:46 Diet Tolerated Eating (Feeding ) Ability Supper Temperature 97.9 F Pulse Rate 57 L 68 Blood Pressure 168/86 136/83 Laboratory Tests 11/15/19 11/17/19 21:48 06:14 WBC 6.9 COVID-19 (NADIYA) Not detected History Source: Patient Limitations to Obtaining History: No Limitations - Past Medical History ...LMP: 03/19/79 ...: No - Smoking History Smoking history: Never smoked Have you smoked in the past 12 months: No Aproximately how many cigarettes per day: 0 - Alcohol/Substance Use Hx Alcohol Use: No History - Admission Reason For Visit: ESSENTIAL HYPERTENSION TRANSIENT ISCHEMIC ATTACK - Diagnostics CT Scan: Report Reviewed MRI: Report Reviewed Other: Other (Head CT completed, with no evidence acute infarct. 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) - General Mental Status: Alert and Oriented, Awake and Alert, Able to Follow Commands Attention: Intact Ability to Follow Directions: Excellent Head/Neck Control: WFL - Hearing Hearing: Normal Speech Evaluation - Communication Primary Language: HEBREW Communication: Yes: Within Normal Limits Oral Expression Ability: Yes: No Impairment - Speech Production Able to Make Needs Known: Yes: WNL Intelligibility: Yes: WNL - Speech Characteristics Voice Loudness: Normal Voice Pitch: Yes: Normal Voice Phonatory-based Quality: Yes: Normal Speech Pattern: Normal Speech Clarity: < 100% Nasal Resonance: Normal Articulation: Yes: Precise Rate of Speech: Intact - Language/Auditory Comprehension Follows: Yes: 2 Stage Simple Commands Observation: Able to respond to yes/no queries: Yes, Yes/No Confusion: No, Comprehends Conversational Speech: Yes - Language/Verbal Expression Able to Respond to Simple Queries: Yes: WNL Able to Communicate Wants and Needs: Yes: WNL Functional Communication Status: Yes: WNL - 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: WNL Short Term Memory: Yes: WNL - Swallow Evaluation/Bedside Assessment Current Nutritional Intake: Regular, Thin Liquids Oral Secretions: Yes: WFL Dentition: Yes: Adequate Facial Symmetry at Rest: Symmetrical Facial Symmetry on Retraction: Symmetrical Facial Movement: Controlled Sensation: Normal Against Resistance Opening: Normal Against Resistance Closing: Normal Pucker Lips: Normal Smile: Normal Lingual Movement: Normal, Symmetric Lingual Speed of Movement: Normal Lingual Movement Strgth Against Opposition: Normal Lingual Movement Characteristics: Normal Velopharyngeal Movement: Normal Laryngeal Elevation: WFL Laryngeal Movement: Able to Palpate Rate of Intake: WFL Bolus Size: WFL Labial Seal: WFL Chewing: WFL Oral Prep Time: WFL A-P Transit: WFL Pocketing: None Timing of Swallow: WFL Coughing/Throat Clear: No Change in Voice: No Recommendations - Speech Evaluation, Impression/Plan Impression: Right sided weakness. Speech,swallow, language, cognition intact - Disposition Discharge to: Home with Assist, Rehabilitation Center (refused) - Dysphagia Impressions/Plan Swallowing Skills: WFL Dysphagia Impressions: No Impairment *Silent aspiration: cannot be R/O at bedside - Recommendations Diet Consistency: Regular Medication Administration: Whole with water Liquids: Thin Liquids
--- NOTE | 2019-11-17 12:04 | DS ---
Physical Exam: SUBJECTIVE: No complaints today, weakness has resolved. Some trouble with walking. Seen by PT today who notes ataxia and recommends walker with PT. Pt does not want to go to inpatient PT and is amenable to outpatient PT. No events on telemetry OBJECTIVE: Vital Signs Period Temp Pulse Resp BP Sys/Bruno Pulse Ox Last 24 Hr 97.5 F-97.9 F 53-76 16-20 136-173/78-86 97-99 PHYSICAL EXAM GENERAL: The patient is awake, alert, and fully oriented, in no acute distress. HEENT: NC/AT, BRITTANIE, EOMI, MMM LUNGS: CTA bilaterally, no wheezes, no crackles, no accessory muscle use. HEART: RRR, S1, S2 without murmur ABDOMEN: Soft, NT/ND, normoactive bowel sounds, EXTREMITIES: 2+ pulses, warm, well-perfused, no edema. NEUROLOGICAL: CN II through XII grossly intact. Strength 5/5 and symmetrical in lower extremities. Sensation intact in lower extremities. Downgoing Babinski, Gait noted to be slightly ataxic, but needs support to walk. No dysarthria. PSYCH: Normal mood, normal affect. SKIN: Warm, dry, no rashes or lesions noted. LABS Laboratory Results - last 24 hr 11/15/19 11/17/19 11/17/19 21:48 06:14 06:14 WBC 6.9 RBC 4.53 Hgb 11.7 Hct 35.9 MCV 79.1 L MCH 25.8 MCHC 32.6 RDW 14.9 Plt Count 141 MPV 10.8 D Absolute Neuts (auto) 3.2 Neutrophils % 46.4 Lymphocytes % 40.0 Monocytes % 7.4 Eosinophils % 5.1 H Basophils % 1.1 Nucleated RBC % 0 Sodium 141 Potassium 4.1 Chloride 107 Carbon Dioxide 27 Anion Gap 6 L BUN 24.7 H Creatinine 1.2 Est GFR (CKD-EPI)AfAm 54.16 Est GFR (CKD-EPI)NonAf 46.73 Random Glucose 92 Calcium 9.2 Magnesium 1.8 Total Bilirubin 0.9 AST 16 ALT 18 Alkaline Phosphatase 62 Total Protein 6.6 Albumin 3.3 L COVID-19 (NADIYA) Not detected Brain MRI: Clinical history: Rule out acute infarct. On the diffusion and FLAIR weighted images there is acute nonhemorrhagic infarct left aspect of the shavon. No evidence of intracerebral hemorrhage, subdural fluid collection or hydrocephalus. 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 MRI of the brain with contrast with attention to the right orbit lane mmended. HOSPITAL COURSE: Date of Admission:11/15/19 Date of Discharge: 11/17/19 Pt admitted on 11/15/2019 due to weakness and numbness in RLE. Patient's symptoms improved with noted normal Head CT. MRI was performed (results as above) and neurology was consulted for TIA. She was admitted to telemetry without any notable events on cardiac monitoring. She was initiated on ASA 81mg qdaily and Lipitor 40mg HS PO which she is to continue with upon discharge. She can continue with her Amlodipine-Benazapril combination medications. She is to see an vacuum pan operator because she was noted to have an incidental mass behind her R eye globe as noted above. Pt has no vision changes, 20/20 by snellan chart, no proptosis, no colour loss. She is to see Dr. Montoya on an outpatient basis or return to the ER immediately if there are vision changes. Minutes to complete discharge: 33 Discharge Summary Problems reviewed: Yes Reason For Visit: ESSENTIAL HYPERTENSION TRANSIENT ISCHEMIC ATTACK Current Active Problems CVA (cerebral vascular accident) (Acute) HLD (hyperlipidemia) (Acute) HTN (hypertension) (Acute) Prophylactic measure (Acute) Suspected COVID-19 virus infection (Acute) Transient ischemic attack (Acute) Condition: Stable - Instructions Diet, Activity, Other Instructions: You were seen here due to your weakness. You were noted to have a mini-stroke (TIA). You were seen by neurology and were recommended to start on new medications. Physical therapy saw you and recommended that you have a walker and continued rehabilitation. You did not want to go to a facility so we will have home physical therapy see you. MEDICATIONS: Please take your home amlodipine-benazapril as you have been You will be given Aspirin 81mg to take daily and Lipitor 40mg to take nightly --These medications have been sent to [facility] pharmacy to be delivered to you You will need to use a walker while you are unsteady on your feet. In addition you will work with physical therapy at home. FOLLOW-UP: You will have to see your home doctor, Dr. Potter, within 1 week of discharge. You were given Dr. Ruvalcaba (neurologist) office information and you will need to follow with him after your discharge. You will need to see Dr. Montoya regarding a finding on your imaging. If you develop vision changes or a sharp pain behind your eye you will need to go to the emergency department for further workup. Referrals: Angelito Montoya MD [Staff Physician] - 2 Weeks Carlos Alberto Ruvalcaba MD [Staff Physician] - 1 Week Blanca Potter MD [Primary Care Provider] - 1 Week Disposition: VNS/HOME HEALTH CARE - Home Medications Comprehensive Discharge Medication List: Ambulatory Orders Omeprazole 20 mg PO DAILY 04/18/19 Amlodipine Besylate/Benazepril [Amlodipine-Benazepril 5-20 mg] 1 each PO DAILY 11/15/19 Aspirin [ASA -] 81 mg PO DAILY #30 tab.chew 11/17/19 Atorvastatin Ca [Lipitor] 40 mg PO HS #30 tablet 11/17/19 This patient is new to me today: Yes Date on this admission: 11/17/19 Emergency Visit: Yes ED Registration Date: 11/15/19 Care time: The patient presented to the Emergency Department on the above date and was hospitalized for further evaluation of their emergent condition. Critical Care patient: No - Discharge Referral [facility]erred to [facility] No
[2019-11-17 14:55] VITALS: BP 134/78; PULSE 60; TEMP 98.2
== END 2019-11-17 17:10 | disposition home health service (06) | DRG 65 ==
LOC: JER 15:54 → JERBED 19:32 → J4W 11-16 16:05
PROVIDERS: ADMIT Internal Medicine; ATTEND Internal Medicine
DX: I63.9 Cerebral infarction, unspecified (principal); I69.351 Hemiplegia and hemiparesis following cerebral infarction affecting right dominant side; R27.0 Ataxia, unspecified; H44.89 Other disorders of globe; I10 Essential (primary) hypertension; E78.5 Hyperlipidemia, unspecified; K21.9 Gastro-esophageal reflux disease without esophagitis; M10.9 Gout, unspecified; I69.392 Facial weakness following cerebral infarction; R00.1 Bradycardia, unspecified
CPT/HCPCS: 36415; 70450-TC; 70496-TC; 70498-TC; 70551-TC; 80053; 80061; 81003; 82550; 83721; 83735; 84100; 84484; 85025; 85610; 85730; 86850; 86900; 86901; 93005; 93010; 97116-GP; 97161-GP; 99285-25; Q9967; U0003